=== PATIENT | male | born 1960 | race African-American/Black ===

== ENCOUNTER 2016-08-13 15:18 | Inpatient (IN) | payer OTHER ==
[2016-08-13 17:32] VITALS: BMI 22.6
--- NOTE | 2016-08-13 18:18 | HP ---
CIWA Score - CIWA Score Nausea/Vomitin-Mild Nausea/No Vomiting Muscle Tremors: 4-Moderate,w/Arms Extend Anxiety: 4-Mod. Anxious/Guarded Agitation: 4-Moderately Restless Paroxysmal Sweats: 1-Minimal Palms Moist Orientation: 0-Oriented Tacttile Disturbances: 0-None Auditory Disturbances: 0-None Visual Disturbances: 0-None Admission ROS BHS - HPI Allergies/Adverse Reactions: Allergies Allergy/AdvReac Type Severity Reaction Status Date / Time No Known Allergies Allergy Verified 12/18/15 15:28 - Ebola screening Have you traveled outside of the country in the last 21 days: No Have you had contact with anyone from an Ebola affected area: No Have you been sick,other than usual withdrawal symptoms: No - Review of Systems Constitutional: Chills, Loss of Appetite, Changes in sleep, Unintentional Wgt. Loss, Unexplained wgt Loss EENT: reports: Dental Problems (UPPER AND LOWER DENTURE MISSING) Respiratory: reports: Cough, SOB with Exertion Cardiac: reports: No Symptoms Reported GI: reports: Nausea, Poor Appetite, Poor Fluid Intake, Indigestion, Abdominal cramping : reports: No Symptoms Reported Musculoskeletal: reports: Joint Pain (LEFT ANKLE) Integumentary: reports: Change in Color (LEFT ANKLE RELATED TO CAST) Neuro: reports: Tremors Endocrine: reports: No Symptoms Reported Hematology: reports: No Symptoms Reported Psychiatric: reports: Judgement Intact, Orientated x3, Depressed Other Systems: Reviewed and Negative Patient History - Patient Medical History Hx Anemia: No Hx Asthma: No Hx Chronic Obstructive Pulmonary Disease (COPD): No Hx Cancer: No Hx Cardiac Disorders: No Hx Congestive Heart Failure: No Hx Hypertension: No Hx Hypercholesterolemia: No Hx Pacemaker: No HX Cerebrovascular Accident: No Hx Seizures: No Hx Dementia: No Hx Diabetes: No Hx Gastrointestinal Disorders: Yes Hx Liver Disease: No Hx Genitourinary Disorders: No Hx Sexually Transmitted Disorders: No Hx Renal Disease (ESRD): No Hx Thyroid Disease: No Hx Human Immunodeficiency Virus (HIV): No (negative) Hx Hepatitis C: No Hx Depression: Yes Hx Suicide Attempt: No (denies) Hx Bipolar Disorder: No Hx Schizophrenia: No - Patient Surgical History Past Surgical History: No Hx Neurologic Surgery: No Hx Cataract Extraction: No Hx Cardiac Surgery: No Hx Lung Surgery: No Hx Breast Surgery: No Hx Breast Biopsy: No Hx Abdominal Surgery: No Hx Appendectomy: No Hx Cholecystectomy: No Hx Genitourinary Surgery: No Hx Orthopedic Surgery: No - PPD History Previous Implant?: Yes Documented Results: Negative w/o proof Implanted On Prior [facility] Admission?: Yes Date: 04/03/15 Results: 0.0 PPD to be Administered?: Yes - Smoking Cessation Smoking history: Current every day smoker Have you smoked in the past 12 months: Yes Aproximately how many cigarettes per day: 3 Cigars Per Day: 0 Hx Chewing Tobacco Use: No Initiated information on smoking cessation: Yes 'Breaking Loose' booklet given: 08/13/16 - Substance & Tx. History Hx Alcohol Use: Yes Hx Substance Use: Yes Substance Use Type: Alcohol, Cocaine, Marijuana Hx Substance Use Treatment: Yes - Substances Abused Alcohol Route: Oral Frequency: Daily Amount used: [id number] + 2 PINT VOLKA Age of first use: 15 Date of Last Use: 08/13/16 Family Disease History - Family Disease History Family Disease History: Other: Father (ALCOHOL,), Mother (ALCOHOL, ), Brother (ALCOHOL,) Admission Physical Exam [facility] - Vital Signs Vital Signs: Vital Signs - 24 hr 08/13/16 17:31 Temperature 97.1 F L Pulse Rate 86 Respiratory 20 Rate Blood Pressure 122/69 - Physical General Appearance: Yes: Appropriately Dressed, Mild Distress, Thin, Tremorous, Irritable, Sweating, Anxious HEENTM: Yes: Hearing grossly Normal, Normal ENT Inspection, Normocephalic, Normal Voice Respiratory: Yes: Chest Non-Tender, Lungs Clear, Normal Breath Sounds, No Respiratory Distress, No Accessory Muscle Use Neck: Yes: Supple, Trachea in good position Breast: Yes: Breasts Symetrical Cardiology: Yes: Regular Rhythm, Regular Rate, S1, S2 Abdominal: Yes: Non Tender, Soft Genitourinary: Yes: Within Normal Limits Back: Yes: Normal Inspection Musculoskeletal: Yes: Gait Steady, Joint swelling (LEFT ANKLE), Muscle Pain Extremities: Yes: Non-Tender, Tremors, Swelling (LEFT ANKLE) Neurological: Yes: Fully Oriented, Alert, Motor Strength 5/5, Normal Response, Depressed Affect Integumentary: Yes: Warm Lymphatic: Yes: Within Normal Limits - Diagnostic (1) Alcohol dependence with uncomplicated withdrawal Current Visit: Yes Status: Acute (2) Cannabis dependence, uncomplicated Current Visit: Yes Status: Chronic (3) Cocaine dependence, uncomplicated Current Visit: Yes Status: Chronic (4) Depression Current Visit: Yes Status: Suspected Qualifiers: Depression Type: dysthymia Qualified Code(s): F34.1 - Dysthymic disorder (5) GERD (gastroesophageal reflux disease) Current Visit: Yes Status: Chronic Qualifiers: Esophagitis presence: without esophagitis Qualified Code(s): K21.9 - Gastro-esophageal reflux disease without esophagitis (6) Nicotine dependence Current Visit: Yes Status: Acute Qualifiers: Nicotine product type: cigarettes Substance use status: in withdrawal Qualified Code(s): F17.213 - Nicotine dependence, cigarettes, with withdrawal (7) Stress fracture, left ankle, sequela Current Visit: Yes Status: Resolved Qualifiers: Encounter type: subsequent encounter Fracture healing: with routine healing Qualified Code(s): M84.372D - Stress fracture, left ankle, subsequent encounter for fracture with routine healing (8) Use of cane as ambulatory aid Current Visit: Yes Status: Acute (9) Weight loss Current Visit: Yes Status: Acute Cleared for Admission [facility] - Detox or Rehab [facility] Level of Care: Medically Managed Detox Regimen/Protocol: Librium [facility] Breath Alcohol Content Breath Alcohol Content: 0 Urine Drug Screen - Results Drug Screen Negative: No Urine Drug Screen Results: THC-Marijuana, HOLLAND-Cocaine
[2016-08-13] MEDS ORDERED: LOPERAMIDE HCL 2 MG CAPSULE PO PRN (18:27)
[2016-08-13] MEDS ORDERED: IBUPROFEN 400 MG TABLET (FP) PO PRN (18:27)
[2016-08-13] MEDS ORDERED: P-EPHED 60MG/TRIPROLIDI 2.5MG TABLET PO PRN (18:27)
[2016-08-13] MEDS ORDERED: chlordiazePOXIDE HCL 25 MG CAPSULE PO PRN (18:27)
[2016-08-13] MEDS ORDERED: MAGNESIUM CITRATE 300 ML BOTTLE PO PRN (18:27)
[2016-08-13] MEDS ORDERED: MAGNESIUM HYDROX 2400MG/30ML ORAL SUSPENSION 30 ML CUP PO PRN (18:27)
[2016-08-13] MEDS ORDERED: MENTHOL/PHENOL 1 EACH UD MM PRN (18:27)
[2016-08-13] MEDS ORDERED: MAG HYDROX/AL HYDROX/SIMETH 30 ML UNIT-DOSE CUP PO PRN (18:27)
[2016-08-13] MEDS ORDERED: guaiFENesin/D-METHORPHAN HB 10 ML UNIT-DOSE CUPS PO PRN (18:27)
[2016-08-13] MEDS ORDERED: ACETAMINOPHEN 325 MG TABLET (FP) PO PRN (18:27)
[2016-08-13] MEDS: chlordiazePOXIDE HCL 25 MG CAPSULE PO SCH (22:40)
[2016-08-13] MEDS: RANITIDINE HCL 150 MG TABLET (FP) PO SCH (22:40)
[2016-08-13] MEDS: THIAMINE HCL 100 MG TABLET (FP) PO SCH (22:40)
[2016-08-13] MEDS: diphenhydrAMINE HCL 50 MG CAPSULE PO PRN (22:41)
[2016-08-13 23:00] LABS: URINE APPEARANCE CLEAR; URINE BILIRUBIN NEGATIVE (NEGATIVE); URINE BLOOD NEGATIVE (NEGATIVE); URINE COLOR AMBER; URINE GLUCOSE (UA) NEGATIVE (NEGATIVE); URINE KETONE 1+ (NEGATIVE); URINE LEUK ESTERASE NEGATIVE (NEGATIVE); URINE NITRITE NEGATIVE (NEGATIVE); URINE UROBILINOGEN 2.0 E.U/dl E.U./dl (0.2-1.0)
[2016-08-13 23:04] LABS: URINE PROTEIN 1+ (NEGATIVE)
[2016-08-13 23:06] LABS: URINE MUCUS MANY; URINE RBC 2 /hpf (0-3); URINE WBC 1 /hpf (3-5)
[2016-08-14] MEDS: chlordiazePOXIDE HCL 25 MG CAPSULE PO SCH ×4 (06:20→22:29)
[2016-08-14 09:50] LABS: MCH 32.8 pg (25.7-33.7); MCHC 33.3 g/dl (32.0-35.9); MEAN CELL VOLUME 98.7 fl (80-96); MEAN PLT VOLUME 8.2 fl (7.5-11.1); PLATELET COUNT 182 K/MM3 (134-434); RDW 14.8 % (11.9-15.9); WHITE BLOOD COUNT 3.3 K/mm3 (4.0-10.0)
[2016-08-14 10:00] LABS: ALBUMIN 3.4 g/dl (3.4-5.0); ANION GAP 7 (8-16); CALCIUM 8.7 mg/dL (8.5-10.1); CO2 30 mmol/L (21-32); COCKROFT - GAULT 75.85; GLUCOSE,RANDOM 76 mg/dL (74-106); SGOT/AST 29 U/L (15-37); SGPT/ALT 22 U/L (12-78)
[2016-08-14 10:02] LABS: ALK PHOS 73 U/L (45-117); BILIRUBIN,TOTAL 0.5 mg/dL (0.2-1.0); TOT PROT 6.3 g/dl (6.4-8.2)
--- NOTE | 2016-08-14 10:37 | PN ---
[facility] CIWA - CIWA Score Nausea/Vomitin Muscle Tremors: 3 Anxiety: 3 Agitation: 2 Paroxysmal Sweats: 1-Minimal Palms Moist Orientation: 0-Oriented Tacttile Disturbances: 1-Very Mild Itch/Numbness Auditory Disturbances: 1-Very Mild Visual Disturbances: 1-Very Mild Sensitivity Headache: 2-Mild CIWA-Ar Total Score: 17 S Progress Note (SOAP) Subjective: ALERT,IRRITABLE,ANXIOUS,INTERRUPTED SLEEP,TREMOR Objective: 08/14/16 10:34 Vital Signs Temperature 97.9 F 08/14/16 10:23 Pulse Rate 68 08/14/16 10:23 Respiratory Rate 16 08/14/16 10:23 Blood Pressure 111/67 08/14/16 10:23 O2 Sat by Pulse Oximetry (%) EKG NSR,RBBB NO CHEST PAIN,NO SOB,NO DIZZINESS 08/14/16 10:36 Laboratory Last Values WBC 3.3 K/mm3 (4.0-10.0) L 08/14/16 07:00 RBC 4.50 M/mm3 (4.00-5.60) 08/14/16 07:00 Hgb 14.8 GM/dL (11.7-16.9) D 08/14/16 07:00 Hct 44.4 % (35.4-49) 08/14/16 07:00 MCV 98.7 fl (80-96) H 08/14/16 07:00 MCHC 33.3 g/dl (32.0-35.9) 08/14/16 07:00 RDW 14.8 % (11.9-15.9) 08/14/16 07:00 Plt Count 182 K/MM3 (134-434) 08/14/16 07:00 MPV 8.2 fl (7.5-11.1) 08/14/16 07:00 Sodium 144 mmol/L (136-145) 08/14/16 07:00 Potassium 3.9 mmol/L (3.5-5.1) 08/14/16 07:00 Chloride 107 mmol/L (98-107) 08/14/16 07:00 Carbon Dioxide 30 mmol/L (21-32) 08/14/16 07:00 Anion Gap 7 (8-16) L 08/14/16 07:00 BUN 20 mg/dL (7-18) H D 08/14/16 07:00 Creatinine 1.0 mg/dL (0.7-1.3) D 08/14/16 07:00 Creat Clearance w eGFR > 60 (>60) 08/14/16 07:00 Random Glucose 76 mg/dL (74-106) 08/14/16 07:00 Calcium 8.7 mg/dL (8.5-10.1) 08/14/16 07:00 Total Bilirubin 0.5 mg/dL (0.2-1.0) 08/14/16 07:00 AST 29 U/L (15-37) D 08/14/16 07:00 ALT 22 U/L (12-78) 08/14/16 07:00 Alkaline Phosphatase 73 U/L (45-117) 08/14/16 07:00 Total Protein 6.3 g/dl (6.4-8.2) L 08/14/16 07:00 Albumin 3.4 g/dl (3.4-5.0) 08/14/16 07:00 Urine Color Gricelda 08/13/16 23:00 Urine Appearance Clear 08/13/16 23:00 Urine pH 5.0 (5.0-8.0) 08/13/16 23:00 Urine Protein 1+ (NEGATIVE) H 08/13/16 23:00 Urine Glucose (UA) Negative (NEGATIVE) 08/13/16 23:00 Urine Ketones 1+ (NEGATIVE) H 08/13/16 23:00 Urine Blood Negative (NEGATIVE) 08/13/16 23:00 Urine Nitrite Negative (NEGATIVE) 08/13/16 23:00 Urine Bilirubin Negative (NEGATIVE) 08/13/16 23:00 Urine Urobilinogen 2.0 e.u/dl E.U./dl (0.2-1.0) 08/13/16 23:00 Ur Leukocyte Esterase Negative (NEGATIVE) 08/13/16 23:00 Urine RBC 2 /hpf (0-3) 08/13/16 23:00 Urine WBC 1 /hpf (3-5) 08/13/16 23:00 Urine Mucus Many 08/13/16 23:00 Assessment: 08/14/16 10:36 WITHDRAWAL SYMPTOM Plan: CONTINUE DETOX,CANE FOR AMBULATORY AID
[2016-08-14] MEDS: RANITIDINE HCL 150 MG TABLET (FP) PO SCH ×2 (11:09→22:29)
[2016-08-14] MEDS: PRENATAL VITAMINS W/ FOLIC ACID TABLET (FP) PO SCH (11:09)
[2016-08-14 11:54] LABS: HIV 1 & 2 AB NEGATIVE; HIV 1 AGp24 NEGATIVE
--- NOTE | 2016-08-14 12:50 | EKG ---
Test Reason : Blood Pressure : / mmHG Vent. Rate : 075 BPM Atrial Rate : 075 BPM P-R Int : 142 ms QRS Dur : 132 ms QT Int : 398 ms P-R-T Axes : 078 079 061 degrees QTc Int : 444 ms NORMAL SINUS RHYTHM POSSIBLE LEFT ATRIAL ENLARGEMENT RIGHT BUNDLE BRANCH BLOCK ABNORMAL ECG NO PREVIOUS ECGS AVAILABLE Confirmed by BELINDA GHOSH MD ([id number]) on 08/14/2016 12:49:29 PM Referred By: Confirmed By:BELINDA GHOSH MD
--- NOTE | 2016-08-14 13:15 | CONSULT ---
[facility] Psychiatric Consult - Data Date of interview: 08/14/16 Admission source: [facility] Identifying data: This is 56 years old male with no psychiatric hospitalization history [id number] with: Alcohol, Nicotine, history of Cocaine andCannabis abuse Substance Abuse History: Smoking Cessation. Smoking history: Current every day smoker. Have you smoked in the past 12 months: Yes. Aproximately how many cigarettes per day: 3. Cigars Per Day: 0. Hx Chewing Tobacco Use: No. Initiated information on smoking cessation: Yes. 'Breaking Loose' booklet given : 08/13/16. - Substance & Tx. History. Hx Alcohol Use: Yes. Hx Substance Use : Yes. Substance Use Type: Alcohol, Cocaine, Marijuana. Hx Substance Use Treatment: Yes. - Substances Abused. Alcohol. Route: Oral. Frequency: Daily. Amount used: [id number] + 2 PINT VOLKA. Age of first use: 15. Date of Last Use: 08/13/16 Medical History: Weight loss, GERD, Umbulating with cane Psychiatric History: Patient reports history of depression, reports no0 medicationsn taking prior to admission Physical/Sexual Abuse/Trauma History: Denies Additional Comment: Observation. Detox Unit Care Protocol Mental Status Exam - Mental Status Exam Alert and Oriented to: Person Cognitive Function: Fair Patient Appearance: Unkempt Mood: Sad Affect: Flat Patient Behavior: Sedated Speech Pattern: Delayed Voice Loudness: Mildly Soft/Quiet Thought Process: Circumstantial Thought Disorder: Being Controlled Hallucinations: Denies Suicidal Ideation: Denies Homicidal Ideation: Denies Insight/Judgement: Fair Sleep: Difficulty falling asleep Appetite: Weight loss Muscle strength/Tone: Mild Hypotonicity Gait/Station: Shuffling Additional Comments: Observation. Detox Unit Care Protocol Psychiatric Findings - Problem List ([place] 1, 2,3) (1) Alcohol dependence with uncomplicated withdrawal Current Visit: Yes Status: Acute (2) Nicotine dependence Current Visit: Yes Status: Acute Qualifiers: Nicotine product type: cigarettes Substance use status: in withdrawal Qualified Code(s): F17.213 - Nicotine dependence, cigarettes, with withdrawal (3) Use of cane as ambulatory aid Current Visit: Yes Status: Acute (4) Cannabis dependence, uncomplicated Current Visit: Yes Status: Chronic (5) Cocaine dependence, uncomplicated Current Visit: Yes Status: Chronic (6) Drug-induced mood disorder Current Visit: Yes Status: Acute - Initial Treatment Plan Initial Treatment Plan: Observation. Detox Unit Care Protocol
[2016-08-14] MEDS: THIAMINE HCL 100 MG TABLET (FP) PO SCH (22:29)
[2016-08-14] MEDS: diphenhydrAMINE HCL 50 MG CAPSULE PO PRN (22:29)
[2016-08-15] MEDS: chlordiazePOXIDE HCL 25 MG CAPSULE PO SCH ×3 (05:59→17:42)
--- NOTE | 2016-08-15 10:36 | PN ---
[facility] CIWA - CIWA Score Nausea/Vomitin Muscle Tremors: 3 Anxiety: 2 Agitation: 2 Paroxysmal Sweats: 1-Minimal Palms Moist Orientation: 0-Oriented Tacttile Disturbances: 1-Very Mild Itch/Numbness Auditory Disturbances: 1-Very Mild Visual Disturbances: 1-Very Mild Sensitivity Headache: 2-Mild CIWA-Ar Total Score: 16 S Progress Note (SOAP) Subjective: ALERT,IRRITABLE,ANXIOUS,INTERRUPTED SLEEP Objective: 08/15/16 10:34 Vital Signs Temperature 97.7 F 08/15/16 06:00 Pulse Rate 61 08/15/16 06:00 Respiratory Rate 18 08/15/16 06:00 Blood Pressure 105/67 08/15/16 06:00 O2 Sat by Pulse Oximetry (%) 08/15/16 10:35 Laboratory Last Values WBC 3.3 K/mm3 (4.0-10.0) L 08/14/16 07:00 RBC 4.50 M/mm3 (4.00-5.60) 08/14/16 07:00 Hgb 14.8 GM/dL (11.7-16.9) D 08/14/16 07:00 Hct 44.4 % (35.4-49) 08/14/16 07:00 MCV 98.7 fl (80-96) H 08/14/16 07:00 MCHC 33.3 g/dl (32.0-35.9) 08/14/16 07:00 RDW 14.8 % (11.9-15.9) 08/14/16 07:00 Plt Count 182 K/MM3 (134-434) 08/14/16 07:00 MPV 8.2 fl (7.5-11.1) 08/14/16 07:00 Sodium 144 mmol/L (136-145) 08/14/16 07:00 Potassium 3.9 mmol/L (3.5-5.1) 08/14/16 07:00 Chloride 107 mmol/L (98-107) 08/14/16 07:00 Carbon Dioxide 30 mmol/L (21-32) 08/14/16 07:00 Anion Gap 7 (8-16) L 08/14/16 07:00 BUN 20 mg/dL (7-18) H D 08/14/16 07:00 Creatinine 1.0 mg/dL (0.7-1.3) D 08/14/16 07:00 Creat Clearance w eGFR > 60 (>60) 08/14/16 07:00 Random Glucose 76 mg/dL (74-106) 08/14/16 07:00 Calcium 8.7 mg/dL (8.5-10.1) 08/14/16 07:00 Total Bilirubin 0.5 mg/dL (0.2-1.0) 08/14/16 07:00 AST 29 U/L (15-37) D 08/14/16 07:00 ALT 22 U/L (12-78) 08/14/16 07:00 Alkaline Phosphatase 73 U/L (45-117) 08/14/16 07:00 Total Protein 6.3 g/dl (6.4-8.2) L 08/14/16 07:00 Albumin 3.4 g/dl (3.4-5.0) 08/14/16 07:00 Urine Color Gricelda 08/13/16 23:00 Urine Appearance Clear 08/13/16 23:00 Urine pH 5.0 (5.0-8.0) 08/13/16 23:00 Ur Specific [place] >= 1.030 (1.005-1.025) H 08/13/16 23:00 Urine Protein 1+ (NEGATIVE) H 08/13/16 23:00 Urine Glucose (UA) Negative (NEGATIVE) 08/13/16 23:00 Urine Ketones 1+ (NEGATIVE) H 08/13/16 23:00 Urine Blood Negative (NEGATIVE) 08/13/16 23:00 Urine Nitrite Negative (NEGATIVE) 08/13/16 23:00 Urine Bilirubin Negative (NEGATIVE) 08/13/16 23:00 Urine Urobilinogen 2.0 e.u/dl E.U./dl (0.2-1.0) 08/13/16 23:00 Ur Leukocyte Esterase Negative (NEGATIVE) 08/13/16 23:00 Urine RBC 2 /hpf (0-3) 08/13/16 23:00 Urine WBC 1 /hpf (3-5) 08/13/16 23:00 Urine Mucus Many 08/13/16 23:00 RPR Titer Nonreactive (NONREACTIVE) 08/14/16 07:00 HIV 1&2 Antibody Screen Negative 08/14/16 07:00 HIV P24 Antigen Negative 08/14/16 07:00 Assessment: 08/15/16 10:35 WITHDRAWAL SYMPTOM Plan: CONTINUE DETOX,DISCHARGE IN AM
[2016-08-15] MEDS: RANITIDINE HCL 150 MG TABLET (FP) PO SCH ×2 (10:41→22:43)
[2016-08-15] MEDS: PRENATAL VITAMINS W/ FOLIC ACID TABLET (FP) PO SCH (10:41)
[2016-08-15] MEDS: diphenhydrAMINE HCL 50 MG CAPSULE PO PRN (22:43)
[2016-08-15] MEDS: THIAMINE HCL 100 MG TABLET (FP) PO SCH (22:43)
[2016-08-15] MEDS: chlordiazePOXIDE 5 MG CAPSULE PO SCH (22:43)
[2016-08-16] MEDS: chlordiazePOXIDE 5 MG CAPSULE PO SCH ×3 (05:57→17:55)
[2016-08-16] MEDS: PRENATAL VITAMINS W/ FOLIC ACID TABLET (FP) PO SCH (10:48)
[2016-08-16] MEDS: RANITIDINE HCL 150 MG TABLET (FP) PO SCH ×2 (10:48→22:12)
--- NOTE | 2016-08-16 12:08 | PN ---
S Progress Note (SOAP) Subjective: ALERT,INTERRUPTED SLEEP Objective: 08/16/16 12:06 WITHDRAWAL SYMPTOM 08/16/16 12:06 Vital Signs Temperature 98.2 F 08/16/16 10:28 Pulse Rate 89 08/16/16 10:28 Respiratory Rate 18 08/16/16 10:28 Blood Pressure 117/69 08/16/16 10:28 O2 Sat by Pulse Oximetry (%) Assessment: 08/16/16 12:07 WITHDRAWAL SYMPTOM Plan: CONTINUE DETOX,DISCHARGE IN AM
[2016-08-16] MEDS: diphenhydrAMINE HCL 50 MG CAPSULE PO PRN (22:12)
[2016-08-16] MEDS: THIAMINE HCL 100 MG TABLET (FP) PO SCH (22:12)
[2016-08-16] MEDS: chlordiazePOXIDE HCL 10 MG CAPSULE PO SCH (22:12)
[2016-08-17] MEDS: chlordiazePOXIDE HCL 10 MG CAPSULE PO SCH (05:22)
[2016-08-17 06:30] VITALS: TEMP 97.9
--- NOTE | 2016-08-17 07:58 | PN ---
S Progress Note (SOAP) Subjective: alert,no complaint Objective: 08/17/16 07:57 Vital Signs Temperature 97.9 F 08/17/16 06:29 Pulse Rate 71 08/17/16 06:29 Respiratory Rate 18 08/17/16 06:29 Blood Pressure 135/77 08/17/16 06:29 O2 Sat by Pulse Oximetry (%) Assessment: 08/17/16 07:57 detox completed no withdrawal symptom Plan: discharge today,follow up with after care program as arrangement
--- NOTE | 2016-08-17 08:01 | DS ---
[facility] Detox Discharge Summary Admission Date: 08/13/16 Discharge Date: 08/17/16 - History Present History: Alcohol Dependence, Cannabis Dependence, Cocaine Dependence Additional Comments: follow up with after care program as arrangement Pertinent Past History: gerd nicotine dependence weight loss old fracture left ankle cane as ambulatory aid - Physical Exam Results Vital Signs: Vital Signs Temperature 97.9 F 08/17/16 06:29 Pulse Rate 71 08/17/16 06:29 Respiratory Rate 18 08/17/16 06:29 Blood Pressure 135/77 08/17/16 06:29 O2 Sat by Pulse Oximetry (%) Pertinent Admission Physical Exam Findings: withdrawal symptom - Treatment Hospital Course: Detox Protocol Followed, Detoxed Safely, Responded well, Discharged Condition Good Patient has Accepted a Rehab Referral to: declined - Medication Discharge Medications: Ambulatory Orders NK [No Known Home Medication] 04/05/15 - AMA Did Patient Leave Against Medical Advice: No
--- NOTE | 2016-08-17 08:08 | PN ---
[facility] Progress Note Note: addendum patient did not want prescription of ranitidine,advise follow up with pmd if any problem and follow up
[2016-08-17] MEDS: RANITIDINE HCL 150 MG TABLET (FP) PO SCH (09:47)
[2016-08-17] MEDS: PRENATAL VITAMINS W/ FOLIC ACID TABLET (FP) PO SCH (09:47)
[2016-08-17 10:08] VITALS: BP 113/71; PULSE 84
== END 2016-08-17 10:12 | disposition home or self-care (01) | DRG 774 ==
LOC: YASAS 15:18 → Y6N 19:32
PROVIDERS: ADMIT Internal Medicine Addiction Medicine; ATTEND Internal Medicine Addiction Medicine
PROC: HZ2ZZZZ Detoxification Services for Substance Abuse Treatment (ICD-10-PCS; principal; 2016-08-17)
DX: F10.230 Alcohol dependence with withdrawal, uncomplicated (principal); F14.20 Cocaine dependence, uncomplicated; F12.20 Cannabis dependence, uncomplicated; F17.213 Nicotine dependence, cigarettes, with withdrawal; F19.24 Other psychoactive substance dependence with psychoactive substance-induced mood disorder; K21.9 Gastro-esophageal reflux disease without esophagitis; R63.4 Abnormal weight loss; Z68.22 Body mass index [BMI] 22.0-22.9, adult; R26.2 Difficulty in walking, not elsewhere classified; Z99.89 Dependence on other enabling machines and devices; M84.372D Stress fracture, left ankle, subsequent encounter for fracture with routine healing
CPT/HCPCS: 36415; 80053; 81003; 81015; 85027; 86593; 87389; 93005; 93010

== ENCOUNTER 2016-11-14 10:57 | Inpatient (IN) | payer OTHER ==
[2016-11-14 11:27] VITALS: BMI 23.3
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
[2016-11-14] MEDS ORDERED: chlordiazePOXIDE HCL 25 MG CAPSULE PO PRN (13:28)
[2016-11-14] MEDS ORDERED: LOPERAMIDE HCL 2 MG CAPSULE PO PRN (13:28)
[2016-11-14] MEDS ORDERED: IBUPROFEN 400 MG TABLET (FP) PO PRN (13:28)
[2016-11-14] MEDS ORDERED: guaiFENesin/D-METHORPHAN HB 10 ML UNIT-DOSE CUPS PO PRN (13:28)
[2016-11-14] MEDS ORDERED: hydrOXYzine PAMOATE 25 MG CAPSULE (FP) PO PRN (13:28)
[2016-11-14] MEDS ORDERED: MAGNESIUM HYDROX 2400MG/30ML ORAL SUSPENSION 30 ML CUP PO PRN (13:28)
[2016-11-14] MEDS ORDERED: P-EPHED 60MG/TRIPROLIDI 2.5MG TABLET PO PRN (13:28)
[2016-11-14] MEDS ORDERED: MENTHOL/PHENOL 1 EACH UD MM PRN (13:28)
[2016-11-14] MEDS ORDERED: MAGNESIUM CITRATE 300 ML BOTTLE PO PRN (13:28)
[2016-11-14] MEDS ORDERED: NICOTINE POLACRILEX 2 MG GUM BUC PRN (13:28)
[2016-11-14] MEDS ORDERED: ACETAMINOPHEN 325 MG TABLET (FP) PO PRN (13:28)
[2016-11-14] MEDS ORDERED: MAG HYDROX/AL HYDROX/SIMETH 30 ML UNIT-DOSE CUP PO PRN (13:28)
[2016-11-14] MEDS ORDERED: chlordiazePOXIDE HCL 25 MG CAPSULE PO ONE (14:12)
[2016-11-14] MEDS: NICOTINE 14 MG/24 HOURS TOPICAL PATCH TD SCH (14:49)
[2016-11-14 16:09] LABS: MCH 33.1 pg (25.7-33.7); MCHC 34.1 g/dl (32.0-35.9); MEAN CELL VOLUME 97.1 fl (80-96); MEAN PLT VOLUME 8.7 fl (7.5-11.1); PLATELET COUNT 243 K/MM3 (134-434); RDW 14.6 % (11.9-15.9); WHITE BLOOD COUNT 4.3 K/mm3 (4.0-10.0)
[2016-11-14 16:31] LABS: ALBUMIN 3.9 g/dl (3.4-5.0); ANION GAP 6 (8-16); BILIRUBIN,TOTAL 0.5 mg/dL (0.2-1.0); CALCIUM 9.3 mg/dL (8.5-10.1); CO2 32 mmol/L (21-32); GLUCOSE,RANDOM 86 mg/dL (74-106); SGOT/AST 14 U/L (15-37); SGPT/ALT 22 U/L (12-78); TOT PROT 7.5 g/dl (6.4-8.2)
[2016-11-14 16:32] LABS: ALK PHOS 85 U/L (45-117)
[2016-11-14] MEDS: chlordiazePOXIDE HCL 25 MG CAPSULE PO SCH ×2 (16:50→22:13)
[2016-11-14 19:02] LABS: URINE APPEARANCE CLEAR; URINE BILIRUBIN NEGATIVE (NEGATIVE); URINE BLOOD NEGATIVE (NEGATIVE); URINE COLOR DKYELLOW; URINE GLUCOSE (UA) NEGATIVE (NEGATIVE); URINE KETONE NEGATIVE (NEGATIVE); URINE LEUK ESTERASE NEGATIVE (NEGATIVE); URINE NITRITE NEGATIVE (NEGATIVE); URINE PROTEIN NEGATIVE (NEGATIVE); URINE UROBILINOGEN 4.0 E.U/dl mg/dL (0.2-1.0)
[2016-11-14] MEDS: THIAMINE HCL 100 MG TABLET (FP) PO SCH (22:13)
[2016-11-15] MEDS: chlordiazePOXIDE HCL 25 MG CAPSULE PO SCH ×4 (05:43→22:14)
[2016-11-15] MEDS: PRENATAL VITAMINS W/ FOLIC ACID TABLET (FP) PO SCH (10:06)
[2016-11-15] MEDS: NICOTINE 14 MG/24 HOURS TOPICAL PATCH TD SCH (10:06)
--- NOTE | 2016-11-15 14:30 | PN ---
S CIWA - CIWA Score Nausea/Vomitin-Int. Nausea w/Dry Heave Muscle Tremors: 2 Anxiety: 3 Agitation: 2 Paroxysmal Sweats: 3 Orientation: 0-Oriented Tacttile Disturbances: 0-None Auditory Disturbances: 2-Mild Harshness/Frighten Visual Disturbances: 2-Mild Sensitivity Headache: 0-None Present CIWA-Ar Total Score: 18 BHS Progress Note (SOAP) Subjective: Nausea, Interrupted sleep, Sweating, Body Aches. Objective: PT. A & O X 3. NO ACUTE DISTRESS. 11/15/16 14:31 Vital Signs Temperature 98.7 F 11/15/16 13:52 Pulse Rate 83 11/15/16 13:52 Respiratory Rate 18 11/15/16 13:52 Blood Pressure 103/70 11/15/16 13:52 O2 Sat by Pulse Oximetry (%) Laboratory Tests 11/14/16 11/14/16 11/14/16 13:00 13:00 13:00 WBC 4.3 D RBC 4.96 Hgb 16.4 D Hct 48.2 MCV 97.1 H MCH 33.1 MCHC 34.1 RDW 14.6 Plt Count 243 D MPV 8.7 Sodium 143 Potassium 4.4 Chloride 105 Carbon Dioxide 32 Anion Gap 6 L BUN 18 Creatinine 1.0 Creat Clearance w eGFR > 60 Random Glucose 86 Calcium 9.3 Total Bilirubin 0.5 AST 14 L D ALT 22 Alkaline Phosphatase 85 Total Protein 7.5 Albumin 3.9 Urine Color Urine Appearance Urine pH Ur Specific [place] Urine Protein Urine Glucose (UA) Urine Ketones Urine Blood Urine Nitrite Urine Bilirubin Urine Urobilinogen Ur Leukocyte Esterase RPR Titer Nonreactive 11/14/16 18:53 WBC RBC Hgb Hct MCV MCH MCHC RDW Plt Count MPV Sodium Potassium Chloride Carbon Dioxide Anion Gap BUN Creatinine Creat Clearance w eGFR Random Glucose Calcium Total Bilirubin AST ALT Alkaline Phosphatase Total Protein Albumin Urine Color Dkyellow Urine Appearance Clear Urine pH 6.0 Ur Specific [place] 1.020 Urine Protein Negative Urine Glucose (UA) Negative Urine Ketones Negative Urine Blood Negative Urine Nitrite Negative Urine Bilirubin Negative Urine Urobilinogen 4.0 e.u/dl Ur Leukocyte Esterase Negative RPR Titer LABS NOTED. Assessment: 11/15/16 14:31 WITHDRAWAL SYMPTOMS. Plan: CONTINUE DETOX.
[2016-11-15] MEDS: diphenhydrAMINE HCL 50 MG CAPSULE PO PRN (22:14)
[2016-11-15] MEDS: THIAMINE HCL 100 MG TABLET (FP) PO SCH (22:14)
[2016-11-16] MEDS: diphenhydrAMINE HCL 50 MG CAPSULE PO PRN ×2 (00:39→22:16)
[2016-11-16] MEDS: chlordiazePOXIDE HCL 25 MG CAPSULE PO SCH ×2 (05:48→10:17)
[2016-11-16] MEDS: PRENATAL VITAMINS W/ FOLIC ACID TABLET (FP) PO SCH (10:17)
[2016-11-16] MEDS: NICOTINE 14 MG/24 HOURS TOPICAL PATCH TD SCH (10:18)
--- NOTE | 2016-11-16 14:03 | EKG ---
Test Reason : Blood Pressure : / mmHG Vent. Rate : 070 BPM Atrial Rate : 070 BPM P-R Int : 140 ms QRS Dur : 134 ms QT Int : 406 ms P-R-T Axes : 077 077 059 degrees QTc Int : 438 ms NORMAL SINUS RHYTHM POSSIBLE LEFT ATRIAL ENLARGEMENT RIGHT BUNDLE BRANCH BLOCK ABNORMAL ECG WHEN COMPARED WITH ECG OF 13-AUG-2016 19:10, NO SIGNIFICANT CHANGE WAS FOUND Confirmed by MCKENNA CORTES, BRAN ([id number]) on 11/16/2016 2:03:32 PM Referred By: Confirmed By:BRAN ANDRES MD
--- NOTE | 2016-11-16 15:46 | PN ---
S CIWA - CIWA Score Nausea/Vomitin Muscle Tremors: 4-Moderate,w/Arms Extend Anxiety: 4-Mod. Anxious/Guarded Agitation: 4-Moderately Restless Paroxysmal Sweats: 3 Orientation: 0-Oriented Tacttile Disturbances: 1-Very Mild Itch/Numbness Auditory Disturbances: 0-None Visual Disturbances: 0-None Headache: 2-Mild CIWA-Ar Total Score: 21 BHS Progress Note (SOAP) Subjective: Tremor, chills, sweating, diarrhea, anxious Objective: 11/16/16 15:43 Last Vital Signs Temp Pulse Resp BP Pulse Ox 97.8 F 76 18 98/68 11/16/16 14:18 11/16/16 14:18 11/16/16 14:18 11/16/16 14:18 b/p 98/68 (noted) Laboratory Tests 11/14/16 11/14/16 11/14/16 13:00 13:00 13:00 WBC 4.3 D RBC 4.96 Hgb 16.4 D Hct 48.2 MCV 97.1 H MCH 33.1 MCHC 34.1 RDW 14.6 Plt Count 243 D MPV 8.7 Sodium 143 Potassium 4.4 Chloride 105 Carbon Dioxide 32 Anion Gap 6 L BUN 18 Creatinine 1.0 Creat Clearance w eGFR > 60 Random Glucose 86 Calcium 9.3 Total Bilirubin 0.5 AST 14 L D ALT 22 Alkaline Phosphatase 85 Total Protein 7.5 Albumin 3.9 Urine Color Urine Appearance Urine pH Ur Specific [place] Urine Protein Urine Glucose (UA) Urine Ketones Urine Blood Urine Nitrite Urine Bilirubin Urine Urobilinogen Ur Leukocyte Esterase RPR Titer Nonreactive 11/14/16 18:53 WBC RBC Hgb Hct MCV MCH MCHC RDW Plt Count MPV Sodium Potassium Chloride Carbon Dioxide Anion Gap BUN Creatinine Creat Clearance w eGFR Random Glucose Calcium Total Bilirubin AST ALT Alkaline Phosphatase Total Protein Albumin Urine Color Dkyellow Urine Appearance Clear Urine pH 6.0 Ur Specific [place] 1.020 Urine Protein Negative Urine Glucose (UA) Negative Urine Ketones Negative Urine Blood Negative Urine Nitrite Negative Urine Bilirubin Negative Urine Urobilinogen 4.0 e.u/dl Ur Leukocyte Esterase Negative RPR Titer Labs noted Assessment: 11/16/16 15:44 Withdrawal symptoms Hypotension noted Plan: Continue detox Hypotension: asymptomatic, encouraged to drink lots of water (water pitcher ordered)
[2016-11-16] MEDS: chlordiazePOXIDE 5 MG CAPSULE PO SCH ×2 (17:58→22:16)
[2016-11-16] MEDS: THIAMINE HCL 100 MG TABLET (FP) PO SCH (22:16)
[2016-11-17] MEDS: chlordiazePOXIDE 5 MG CAPSULE PO SCH ×2 (05:48→10:08)
[2016-11-17] MEDS: PRENATAL VITAMINS W/ FOLIC ACID TABLET (FP) PO SCH (10:09)
[2016-11-17] MEDS: NICOTINE 14 MG/24 HOURS TOPICAL PATCH TD SCH (10:09)
--- NOTE | 2016-11-17 11:10 | PN ---
BHS Progress Note (SOAP) Subjective: Sweating,interrupted sleep,restless Objective: 11/17/16 11:09 Vital Signs - 8 hr 11/17/16 11/17/16 11/17/16 03:29 06:30 09:36 Temperature 97.5 F L 96.2 F L Pulse Rate 69 90 Respiratory 18 18 18 Rate Blood Pressure 107/69 111/77 Laboratory Last Values WBC 4.3 K/mm3 (4.0-10.0) D 11/14/16 13:00 RBC 4.96 M/mm3 (4.00-5.60) 11/14/16 13:00 Hgb 16.4 GM/dL (11.7-16.9) D 11/14/16 13:00 Hct 48.2 % (35.4-49) 11/14/16 13:00 MCV 97.1 fl (80-96) H 11/14/16 13:00 MCH 33.1 pg (25.7-33.7) 11/14/16 13:00 MCHC 34.1 g/dl (32.0-35.9) 11/14/16 13:00 RDW 14.6 % (11.9-15.9) 11/14/16 13:00 Plt Count 243 K/MM3 (134-434) D 11/14/16 13:00 MPV 8.7 fl (7.5-11.1) 11/14/16 13:00 Sodium 143 mmol/L (136-145) 11/14/16 13:00 Potassium 4.4 mmol/L (3.5-5.1) 11/14/16 13:00 Chloride 105 mmol/L (98-107) 11/14/16 13:00 Carbon Dioxide 32 mmol/L (21-32) 11/14/16 13:00 Anion Gap 6 (8-16) L 11/14/16 13:00 BUN 18 mg/dL (7-18) 11/14/16 13:00 Creatinine 1.0 mg/dL (0.7-1.3) 11/14/16 13:00 Creat Clearance w eGFR > 60 (>60) 11/14/16 13:00 Random Glucose 86 mg/dL (74-106) 11/14/16 13:00 Calcium 9.3 mg/dL (8.5-10.1) 11/14/16 13:00 Total Bilirubin 0.5 mg/dL (0.2-1.0) 11/14/16 13:00 AST 14 U/L (15-37) L D 11/14/16 13:00 ALT 22 U/L (12-78) 11/14/16 13:00 Alkaline Phosphatase 85 U/L (45-117) 11/14/16 13:00 Total Protein 7.5 g/dl (6.4-8.2) 11/14/16 13:00 Albumin 3.9 g/dl (3.4-5.0) 11/14/16 13:00 Urine Color Dkyellow 11/14/16 18:53 Urine Appearance Clear 11/14/16 18:53 Urine pH 6.0 (5.0-8.0) 11/14/16 18:53 Ur Specific [place] 1.020 (1.005-1.025) 11/14/16 18:53 Urine Protein Negative (NEGATIVE) 11/14/16 18:53 Urine Glucose (UA) Negative (NEGATIVE) 11/14/16 18:53 Urine Ketones Negative (NEGATIVE) 11/14/16 18:53 Urine Blood Negative (NEGATIVE) 11/14/16 18:53 Urine Nitrite Negative (NEGATIVE) 11/14/16 18:53 Urine Bilirubin Negative (NEGATIVE) 11/14/16 18:53 Urine Urobilinogen 4.0 e.u/dl mg/dL (0.2-1.0) 11/14/16 18:53 Ur Leukocyte Esterase Negative (NEGATIVE) 11/14/16 18:53 RPR Titer Nonreactive (NONREACTIVE) 11/14/16 13:00 labs noted Assessment: 11/17/16 11:10 Withdrawal sx. Plan: Continue detox
[2016-11-17] MEDS: chlordiazePOXIDE HCL 10 MG CAPSULE PO SCH ×2 (17:40→22:01)
[2016-11-17] MEDS: THIAMINE HCL 100 MG TABLET (FP) PO SCH (22:01)
[2016-11-17] MEDS: diphenhydrAMINE HCL 50 MG CAPSULE PO PRN (22:01)
[2016-11-18] MEDS: chlordiazePOXIDE HCL 10 MG CAPSULE PO SCH ×2 (05:48→10:17)
[2016-11-18 09:57] VITALS: BP 107/71; PULSE 95; TEMP 98.9
[2016-11-18] MEDS: NICOTINE 14 MG/24 HOURS TOPICAL PATCH TD SCH (10:15)
[2016-11-18] MEDS: PRENATAL VITAMINS W/ FOLIC ACID TABLET (FP) PO SCH (10:15)
--- NOTE | 2016-11-18 13:39 | DS ---
[facility] Detox Discharge Summary Admission Date: 11/14/16 Discharge Date: 11/18/16 - History Present History: Alcohol Dependence, Cannabis Dependence, Cocaine Dependence Pertinent Past History: GERD - Physical Exam Results Vital Signs: Vital Signs Temperature 98.9 F 11/18/16 09:56 Pulse Rate 95 H 11/18/16 09:56 Respiratory Rate 20 11/18/16 09:56 Blood Pressure 107/71 11/18/16 09:56 O2 Sat by Pulse Oximetry (%) Pertinent Admission Physical Exam Findings: Withdrawal sx. Laboratory Last Values WBC 4.3 K/mm3 (4.0-10.0) D 11/14/16 13:00 RBC 4.96 M/mm3 (4.00-5.60) 11/14/16 13:00 Hgb 16.4 GM/dL (11.7-16.9) D 11/14/16 13:00 Hct 48.2 % (35.4-49) 11/14/16 13:00 MCV 97.1 fl (80-96) H 11/14/16 13:00 MCH 33.1 pg (25.7-33.7) 11/14/16 13:00 MCHC 34.1 g/dl (32.0-35.9) 11/14/16 13:00 RDW 14.6 % (11.9-15.9) 11/14/16 13:00 Plt Count 243 K/MM3 (134-434) D 11/14/16 13:00 MPV 8.7 fl (7.5-11.1) 11/14/16 13:00 Sodium 143 mmol/L (136-145) 11/14/16 13:00 Potassium 4.4 mmol/L (3.5-5.1) 11/14/16 13:00 Chloride 105 mmol/L (98-107) 11/14/16 13:00 Carbon Dioxide 32 mmol/L (21-32) 11/14/16 13:00 Anion Gap 6 (8-16) L 11/14/16 13:00 BUN 18 mg/dL (7-18) 11/14/16 13:00 Creatinine 1.0 mg/dL (0.7-1.3) 11/14/16 13:00 Creat Clearance w eGFR > 60 (>60) 11/14/16 13:00 Random Glucose 86 mg/dL (74-106) 11/14/16 13:00 Calcium 9.3 mg/dL (8.5-10.1) 11/14/16 13:00 Total Bilirubin 0.5 mg/dL (0.2-1.0) 11/14/16 13:00 AST 14 U/L (15-37) L D 11/14/16 13:00 ALT 22 U/L (12-78) 11/14/16 13:00 Alkaline Phosphatase 85 U/L (45-117) 11/14/16 13:00 Total Protein 7.5 g/dl (6.4-8.2) 11/14/16 13:00 Albumin 3.9 g/dl (3.4-5.0) 11/14/16 13:00 Urine Color Dkyellow 11/14/16 18:53 Urine Appearance Clear 11/14/16 18:53 Urine pH 6.0 (5.0-8.0) 11/14/16 18:53 Ur Specific [place] 1.020 (1.005-1.025) 11/14/16 18:53 Urine Protein Negative (NEGATIVE) 11/14/16 18:53 Urine Glucose (UA) Negative (NEGATIVE) 11/14/16 18:53 Urine Ketones Negative (NEGATIVE) 11/14/16 18:53 Urine Blood Negative (NEGATIVE) 11/14/16 18:53 Urine Nitrite Negative (NEGATIVE) 11/14/16 18:53 Urine Bilirubin Negative (NEGATIVE) 11/14/16 18:53 Urine Urobilinogen 4.0 e.u/dl mg/dL (0.2-1.0) 11/14/16 18:53 Ur Leukocyte Esterase Negative (NEGATIVE) 11/14/16 18:53 RPR Titer Nonreactive (NONREACTIVE) 11/14/16 13:00 labs noted - Treatment Hospital Course: Detox Protocol Followed, Detoxed Safely, Responded well, Discharged Condition Good, Rehab Referral Accepted Patient has Accepted a Rehab Referral to: [facility] - Medication Discharge Medications: Ambulatory Orders NK [No Known Home Medication] 11/14/16 - Diagnosis (1) Alcohol dependence with uncomplicated withdrawal Status: Acute (2) Cocaine dependence, uncomplicated Status: Acute (3) Drug-induced mood disorder Status: Acute (4) Nicotine dependence Status: Acute Qualifiers: Nicotine product type: cigarettes Substance use status: in withdrawal Qualified Code(s): F17.213 - Nicotine dependence, cigarettes, with withdrawal (5) Cannabis dependence, uncomplicated Status: Chronic (6) GERD (gastroesophageal reflux disease) Status: Chronic Qualifiers: Esophagitis presence: without esophagitis Qualified Code(s): K21.9 - Gastro-esophageal reflux disease without esophagitis - AMA Did Patient Leave Against Medical Advice: No
== END 2016-11-18 11:00 | disposition home or self-care (01) | DRG 774 ==
LOC: YASAS 10:57 → Y3N 13:58
PROVIDERS: ADMIT Internal Medicine; ATTEND Internal Medicine
PROC: HZ2ZZZZ Detoxification Services for Substance Abuse Treatment (ICD-10-PCS; principal; 2016-11-14)
DX: F10.230 Alcohol dependence with withdrawal, uncomplicated (principal); F14.20 Cocaine dependence, uncomplicated; F12.20 Cannabis dependence, uncomplicated; F17.213 Nicotine dependence, cigarettes, with withdrawal; F19.24 Other psychoactive substance dependence with psychoactive substance-induced mood disorder; K21.9 Gastro-esophageal reflux disease without esophagitis; Z87.898 Personal history of other specified conditions
CPT/HCPCS: 36415; 80053; 81003; 85027; 86593; 93005; 93010

== ENCOUNTER 2018-05-12 15:14 | Inpatient (IN) | payer OTHER ==
[2018-05-12 19:10] VITALS: BMI 22.6
--- NOTE | 2018-05-12 22:22 | HP ---
CIWA Score Nausea/Vomitin-Mild Nausea/No Vomiting Muscle Tremors: 4-Moderate,w/Arms Extend Anxiety: 4-Mod. Anxious/Guarded Agitation: 3 Paroxysmal Sweats: 1-Minimal Palms Moist Orientation: 1-Uncertain about Date Tacttile Disturbances: 0-None Auditory Disturbances: 0-None Visual Disturbances: 0-None Headache: 0-None Present CIWA-Ar Total Score: 14 - Admission Criteria OASAS Guidelines: Admission for Medically Managed Detox: Requires at least one of the followin. CIWA greater than 12 2. Seizures within the past 24 hours 3. Delirium tremens within the past 24 hours 4. Hallucinations within the past 24 hours 5. Acute intervention needed for co occurring medical disorder 6. Acute intervention needed for co occurring psychiatric disorder 7. Severe withdrawal that cannot be handled at a lower level of care (continued vomiting, continued diarrhea, abnormal vital signs) requiring intravenous medication and/or fluids 8. Admission ROS S - HPI Chief Complaint: Alcohol withdrawal symptoms Allergies/Adverse Reactions: Allergies Allergy/AdvReac Type Severity Reaction Status Date / Time No Known Allergies Allergy Verified 05/12/18 23:20 History of Present Illness: 57 years old male with a long history of alcohol dependence is seeking admission to detox. Patient's last detox was in November 2016 and he reports about 3 months of sobriety. He has medical history of depression, anxiety, anemia and GERD. He denies suicide attempt/ suicidal ideation at this time Exam Limitations: No Limitations - Ebola screening Have you traveled outside of the country in the last 21 days: No Have you had contact with anyone from an Ebola affected area: No Have you been sick,other than usual withdrawal symptoms: No Do you have a fever: No - Review of Systems Constitutional: Chills, Malaise, Night Sweats, Changes in sleep EENT: reports: Sinus Pressure Respiratory: reports: No Symptoms reported Cardiac: reports: No Symptoms Reported GI: reports: Nausea, Poor Appetite, Poor Fluid Intake, Abdominal cramping : reports: No Symptoms Reported Musculoskeletal: reports: Back Pain, Joint Pain Integumentary: reports: Dryness, Flushing Neuro: reports: Tremors Endocrine: reports: No Symptoms Reported Hematology: reports: No Symptoms Reported Psychiatric: reports: Anxious, Depressed Other Systems: Reviewed and Negative Patient History - Patient Medical History Hx Anemia: Yes (NO MEDS) Hx Asthma: No Hx Chronic Obstructive Pulmonary Disease (COPD): No Hx Cancer: No Hx Cardiac Disorders: No Hx Congestive Heart Failure: No Hx Hypertension: No Hx Hypercholesterolemia: No Hx Pacemaker: No HX Cerebrovascular Accident: No Hx Seizures: No Hx Dementia: No Hx Diabetes: No Hx Gastrointestinal Disorders: Yes (GERD-NO CURRENT MED) Hx Liver Disease: No Hx Genitourinary Disorders: No Hx Sexually Transmitted Disorders: No Hx Renal Disease (ESRD): No Hx Thyroid Disease: No Hx Human Immunodeficiency Virus (HIV): No (NEGATIVE HX) Hx Hepatitis C: No Hx Depression: Yes Hx Suicide Attempt: No (Denies suicide attempt / suicidal ideation at this time. ) Hx Bipolar Disorder: No Hx Schizophrenia: No Other Medical History: Anxiety- Not on medication - Patient Surgical History Past Surgical History: No Hx Neurologic Surgery: No Hx Cataract Extraction: No Hx Cardiac Surgery: No Hx Lung Surgery: No Hx Abdominal Surgery: No Hx Appendectomy: No Hx Cholecystectomy: No Hx Genitourinary Surgery: No Hx Orthopedic Surgery: No Anesthesia Reaction: No - PPD History Documented Results: Negative w/proof Date: 08/15/16 Results: 0.00 PPD to be Administered?: Yes - Reproductive History Patient is a Female of Child Bearing Age (11 -55 yrs old): No (Male) - Smoking Cessation Smoking history: Current every day smoker Have you smoked in the past 12 months: Yes Aproximately how many cigarettes per day: 6 Cigars Per Day: 0 Hx Chewing Tobacco Use: No Initiated information on smoking cessation: Yes 'Breaking Loose' booklet given: 05/12/18 - Substance & Tx. History Hx Alcohol Use: Yes Hx Substance Use: Yes Substance Use Type: Alcohol, Cocaine, Marijuana Hx Substance Use Treatment: Yes - Substances Abused Alcohol Route: Oral Frequency: Daily Amount used: RUM - 1 Liter Age of first use: 15 Date of Last Use: 05/11/18 Cocaine Route: Smoking Frequency: Daily Amount used: $100 Age of first use: 21 Date of Last Use: 05/11/18 Marijuana/Hashish Route: Smoking Frequency: Daily Amount used: $10 Age of first use: 15 Date of Last Use: 05/12/18 Family Disease History - Family Disease History Family Disease History: Other: Father (ALCOHOL,), Mother (ALCOHOL, ), Brother (ALCOHOL,) Admission Physical Exam BHS - Vital Signs Vital Signs: Vital Signs - 24 hr 05/12/18 19:08 Temperature 97.8 F Pulse Rate 90 Respiratory 18 Rate Blood Pressure 116/74 - Physical General Appearance: Yes: Moderate Distress, Tremorous, Sweating, Anxious HEENTM: Yes: EOMI, Normal ENT Inspection, Normal Voice, SHEREEN Respiratory: Yes: Lungs Clear, Normal Breath Sounds, No Respiratory Distress Neck: Yes: Supple Breast: Yes: Breast Exam Deferred Cardiology: Yes: Tachycardia Abdominal: Yes: Normal Bowel Sounds, Soft Genitourinary: Yes: Within Normal Limits Back: Yes: Normal Inspection Musculoskeletal: Yes: Back pain, Muscle Pain Extremities: Yes: Tremors 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, Alert, Normal Mood/Affect Integumentary: Yes: Warm Lymphatic: Yes: Within Normal Limits - Diagnostic (1) Alcohol dependence with uncomplicated withdrawal Current Visit: Yes Status: Chronic (2) Cocaine dependence, uncomplicated Current Visit: Yes Status: Chronic (3) Nicotine dependence Current Visit: Yes Status: Chronic Qualifiers: Nicotine product type: cigarettes Substance use status: uncomplicated Qualified Code(s): F17.210 - Nicotine dependence, cigarettes, uncomplicated (4) Cannabis dependence, uncomplicated Current Visit: Yes Status: Chronic (5) GERD (gastroesophageal reflux disease) Current Visit: Yes Status: Chronic Qualifiers: Esophagitis presence: without esophagitis Qualified Code(s): K21.9 - Gastro -esophageal reflux disease without esophagitis (6) Depression Current Visit: Yes Status: Chronic Qualifiers: Depression Type: dysthymia Qualified Code(s): F34.1 - Dysthymic disorder (7) Anxiety Current Visit: Yes Status: Chronic Cleared for Admission [facility] - Detox or Rehab [facility] Level of Care: Medically Managed Detox Regimen/Protocol: Librium [facility] Breath Alcohol Content Breath Alcohol Content: 0 Urine Drug Screen - Results Drug Screen Negative: No Urine Drug Screen Results: THC-Marijuana, [place]-Cocaine Inpatient Rehab Admission - Rehab Decision to Admit Inpatient rehab admission?: No - Initial Determination Are CD services needed?: No Free of communicable disease: Yes Not in need of hospitalization: Yes
[2018-05-12] MEDS ORDERED: MAG HYDROX/AL HYDROX/SIMETH 30 ML UNIT-DOSE CUP PO PRN (22:41)
[2018-05-12] MEDS ORDERED: P-EPHED 60MG/TRIPROLIDI 2.5MG TABLET PO PRN (22:41)
[2018-05-12] MEDS ORDERED: chlordiazePOXIDE HCL 25 MG CAPSULE PO PRN (22:41)
[2018-05-12] MEDS ORDERED: IBUPROFEN 400 MG TABLET (FP) PO PRN (22:41)
[2018-05-12] MEDS ORDERED: MAGNESIUM CITRATE 300 ML BOTTLE PO PRN (22:41)
[2018-05-12] MEDS ORDERED: guaiFENesin/D-METHORPHAN HB 10 ML UNIT-DOSE CUPS PO PRN (22:41)
[2018-05-12] MEDS ORDERED: MENTHOL/PHENOL 1 EACH UD MM PRN (22:41)
[2018-05-12] MEDS ORDERED: MAGNESIUM HYDROX 2400MG/30ML ORAL SUSPENSION 30 ML CUP PO PRN (22:41)
[2018-05-12] MEDS ORDERED: NICOTINE POLACRILEX 2 MG GUM BC PRN (22:41)
[2018-05-12] MEDS ORDERED: LOPERAMIDE HCL 2 MG CAPSULE PO PRN (22:41)
[2018-05-12] MEDS ORDERED: ACETAMINOPHEN 325 MG TABLET (FP) PO PRN (22:41)
[2018-05-13] MEDS: chlordiazePOXIDE HCL 25 MG CAPSULE PO SCH ×5 (00:15→22:14)
[2018-05-13] MEDS: MELATONIN 5 MG TABLETS PO PRN ×2 (00:16→22:14)
--- NOTE | 2018-05-13 09:45 | PN ---
BHS CIWA - CIWA Score Nausea/Vomitin-No Nausea/No Vomiting Muscle Tremors: 3 Anxiety: 2 Agitation: 2 Paroxysmal Sweats: 1-Minimal Palms Moist Orientation: 1-Uncertain about Date Tacttile Disturbances: 1-Very Mild Itch/Numbness Auditory Disturbances: 0-None Visual Disturbances: 0-None Headache: 2-Mild CIWA-Ar Total Score: 12 BHS Progress Note (SOAP) Subjective: tremor sweating restlessness trouble concentrating Objective: 05/13/18 09:46 Vital Signs Temperature 97.2 F L 05/13/18 09:21 Pulse Rate 77 05/13/18 09:21 Respiratory Rate 18 05/13/18 09:21 Blood Pressure 106/65 05/13/18 09:21 O2 Sat by Pulse Oximetry (%) 05/13/18 09:47 lab pending Assessment: 05/13/18 09:47 withdrawal sx Plan: continue detox
--- NOTE | 2018-05-13 10:16 | CONSULT ---
[facility] Psychiatric Consult - Data Date of interview: 05/13/18 Admission source: [facility] Identifying data: Patient is a 57 year old single male, without children, unemployed, homeless, and is not receiving financial assistance. This is one of multiple admissions for patient. Patient admitted to for alcohol and cocaine dependence. Substance Abuse History: Smoking Cessation. Smoking history: Current every day smoker. Have you smoked in the past 12 months: Yes. Aproximately how many cigarettes per day: 6. Cigars Per Day: 0. Hx Chewing Tobacco Use: No. Initiated information on smoking cessation: Yes. 'Breaking Loose' booklet given : 05/12/18. - Substance & Tx. History. Hx Alcohol Use: Yes. Hx Substance Use : Yes. Substance Use Type: Alcohol, Cocaine, Marijuana. Hx Substance Use Treatment: Yes. - Substances Abused. Alcohol. Route: Oral. Frequency: Daily. Amount used: RUM - 1 Liter. Age of first use: 15. Date of Last Use: . Cocaine. Route: Smoking. Frequency: Daily. Amount used: $100. Age of first use: 21. Date of Last Use: 05/11/18. Marijuana/Hashish. Route : Smoking. Frequency: Daily. Amount used: $10. Age of first use: 15. Date of Last Use: 05/12/18 Medical History: Anemia, GERD Psychiatric History: Patient denies h/o psychiatric hospitalizations and suicide attempt. States he receives outpatient psychiatric care at "[facility]" and is prescribed a medication for anxiety. Patient unable to recall the medication. States he has not accepted psychotropic medications in several months. Physical/Sexual Abuse/Trauma History: denies. Mental Status Exam - Mental Status Exam Alert and Oriented to: Time, Place, Person Cognitive Function: Good Patient Appearance: Well Groomed Mood: Anxious, Euthymic Affect: Mood Congruent Patient Behavior: Appropriate, Cooperative Speech Pattern: Clear, Appropriate Voice Loudness: Normal Thought Process: Intact, Goal Oriented Thought Disorder: Not Present Hallucinations: Denies Suicidal Ideation: Denies Homicidal Ideation: Denies Insight/Judgement: Poor Sleep: Fair Appetite: Fair Muscle strength/Tone: Normal Gait/Station: Normal Psychiatric Findings - Problem List ([place] 1, 2,3) (1) Alcohol dependence with uncomplicated withdrawal Current Visit: Yes Status: Acute (2) Cannabis dependence, uncomplicated Current Visit: Yes Status: Chronic (3) Cocaine dependence, uncomplicated Current Visit: Yes Status: Chronic (4) Nicotine dependence Current Visit: Yes Status: Chronic Qualifiers: Nicotine product type: cigarettes Substance use status: uncomplicated Qualified Code(s): F17.210 - Nicotine dependence, cigarettes, uncomplicated (5) Substance induced mood disorder Current Visit: Yes Status: Acute - Initial Treatment Plan Initial Treatment Plan: Psychoeducation provided. Detoxification in progress. Will order Vistaril 50mg q4h for anxiety. Benefits and side effects discussed. Verbal consent given.
[2018-05-13] MEDS: NICOTINE 14 MG/24 HOURS TOPICAL PATCH TD SCH (10:36)
[2018-05-13] MEDS: PRENATAL VITAMINS W/ FOLIC ACID TABLET (FP) PO SCH (10:36)
[2018-05-13] MEDS ORDERED: hydrOXYzine PAMOATE 50 MG CAPSULE (FP) PO PRN (17:56)
[2018-05-13] MEDS: THIAMINE HCL 100 MG TABLET (FP) PO SCH (22:13)
[2018-05-14] MEDS: chlordiazePOXIDE HCL 25 MG CAPSULE PO SCH ×3 (06:20→17:13)
[2018-05-14 10:07] LABS: HEMATOCRIT 43.3 % (35.4-49); HEMOGLOBIN 14.7 GM/dL (11.7-16.9); MCH 33.1 pg (25.7-33.7); MEAN CELL VOLUME 97.3 fl (80-96); MEAN PLT VOLUME 8.3 fl (7.5-11.1); PLATELET COUNT 256 K/MM3 (134-434); RBC 4.45 M/mm3 (4.00-5.60); RDW 14.7 % (11.9-15.9); WHITE BLOOD COUNT 3.9 K/mm3 (4.0-10.0)
[2018-05-14] MEDS: NICOTINE 14 MG/24 HOURS TOPICAL PATCH TD SCH (10:51)
[2018-05-14] MEDS: PRENATAL VITAMINS W/ FOLIC ACID TABLET (FP) PO SCH (10:51)
[2018-05-14 10:53] LABS: ALBUMIN 3.1 g/dl (3.4-5.0); ALK PHOS 74 U/L (45-117); ANION GAP 5 MMOL/L (8-16); BILIRUBIN,TOTAL 0.4 mg/dL (0.2-1); BLOOD UREA NITROGEN 14 mg/dL (7-18); CALCIUM 9.4 mg/dL (8.5-10.1); CHLORIDE 107 mmol/L (98-107); CO2 31 mmol/L (21-32); CREATININE 0.8 mg/dL (0.55-1.3); GLUCOSE,RANDOM 74 mg/dL (74-106); POTASSIUM 4.4 mmol/L (3.5-5.1); SGOT/AST 19 U/L (15-37); SGPT/ALT 23 U/L (13-61); SODIUM 143 mmol/L (136-145); TOT PROT 6.3 g/dl (6.4-8.2)
--- NOTE | 2018-05-14 16:31 | PN ---
[facility] CIWA - CIWA Score Nausea/Vomitin-No Nausea/No Vomiting Muscle Tremors: None Anxiety: 0-No Anxiety, at Ease Agitation: 0-Normal Activity Paroxysmal Sweats: 3 Orientation: 2-Disoriented Date<2 days Tacttile Disturbances: 1-Very Mild Itch/Numbness Auditory Disturbances: 0-None Visual Disturbances: 3-Moderate Sensitivity Headache: 0-None Present CIWA-Ar Total Score: 9 BHS Progress Note (SOAP) Subjective: Fatigue, Sweating, Body Aches. Objective: PATIENT A & O X 2 (UNCERTAIN ABOUT CURRENT DAY / DATE). PATIENT OBSERVED AMBULATING ON UNIT. IN NO ACUTE DISTRESS. 05/14/18 16:29 Vital Signs Temperature 97.9 F 05/14/18 13:04 Pulse Rate 80 05/14/18 13:04 Respiratory Rate 18 05/14/18 13:04 Blood Pressure 105/60 05/14/18 13:04 O2 Sat by Pulse Oximetry (%) Laboratory Tests 05/13/18 05/14/18 05/14/18 05:20 07:00 07:00 WBC 3.9 L RBC 4.45 Hgb 14.7 Hct 43.3 MCV 97.3 H MCH 33.1 MCHC 34.0 RDW 14.7 Plt Count 256 MPV 8.3 Sodium 143 Potassium 4.4 Chloride 107 Carbon Dioxide 31 Anion Gap 5 L BUN 14 Creatinine 0.8 Creat Clearance w eGFR > 60 Random Glucose 74 Calcium 9.4 Total Bilirubin 0.4 AST 19 ALT 23 Alkaline Phosphatase 74 Total Protein 6.3 L Albumin 3.1 L RPR Titer Cancelled 05/14/18 07:00 WBC RBC Hgb Hct MCV MCH MCHC RDW Plt Count MPV Sodium Potassium Chloride Carbon Dioxide Anion Gap BUN Creatinine Creat Clearance w eGFR Random Glucose Calcium Total Bilirubin AST ALT Alkaline Phosphatase Total Protein Albumin RPR Titer Nonreactive LABS NOTED. Assessment: 05/14/18 16:30 WITHDRAWAL SYMPTOMS. Plan: CONTINUE DETOX. INCREASE DAILY PO FLUID INTAKE.
[2018-05-14] MEDS: THIAMINE HCL 100 MG TABLET (FP) PO SCH (22:32)
[2018-05-14] MEDS: chlordiazePOXIDE 5 MG CAPSULE PO SCH (22:32)
[2018-05-15] MEDS: chlordiazePOXIDE 5 MG CAPSULE PO SCH ×3 (05:33→17:18)
--- NOTE | 2018-05-15 10:25 | PN ---
BHS Progress Note (SOAP) Subjective: pt without complaints, says will be going back to longterm. O: Vital Signs - 24 hr 05/14/18 05/14/18 05/14/18 13:04 17:48 21:57 Temperature 97.9 F 98.5 F 98.2 F Pulse Rate 80 82 83 Respiratory 18 18 18 Rate Blood Pressure 105/60 117/68 109/71 05/15/18 05/15/18 05/15/18 00:30 03:30 06:16 Temperature 97.8 F Pulse Rate 72 Respiratory 18 18 18 Rate Blood Pressure 108/68 05/15/18 09:12 Temperature 96.9 F L Pulse Rate 68 Respiratory 18 Rate Blood Pressure 110/68 Laboratory Tests 05/13/18 05/14/18 05/14/18 05:20 07:00 07:00 WBC 3.9 L RBC 4.45 Hgb 14.7 Hct 43.3 MCV 97.3 H MCH 33.1 MCHC 34.0 RDW 14.7 Plt Count 256 MPV 8.3 Sodium 143 Potassium 4.4 Chloride 107 Carbon Dioxide 31 Anion Gap 5 L BUN 14 Creatinine 0.8 Creat Clearance w eGFR > 60 Random Glucose 74 Calcium 9.4 Total Bilirubin 0.4 AST 19 ALT 23 Alkaline Phosphatase 74 Total Protein 6.3 L Albumin 3.1 L RPR Titer Cancelled 05/14/18 07:00 WBC RBC Hgb Hct MCV MCH MCHC RDW Plt Count MPV Sodium Potassium Chloride Carbon Dioxide Anion Gap BUN Creatinine Creat Clearance w eGFR Random Glucose Calcium Total Bilirubin AST ALT Alkaline Phosphatase Total Protein Albumin RPR Titer Nonreactive a/p: continue alcohol detox protocol- pt doing well
[2018-05-15] MEDS: PRENATAL VITAMINS W/ FOLIC ACID TABLET (FP) PO SCH (10:44)
[2018-05-15] MEDS: NICOTINE 14 MG/24 HOURS TOPICAL PATCH TD SCH (10:46)
[2018-05-15] MEDS: THIAMINE HCL 100 MG TABLET (FP) PO SCH (22:14)
[2018-05-15] MEDS: chlordiazePOXIDE HCL 10 MG CAPSULE PO SCH (22:14)
[2018-05-15] MEDS: MELATONIN 5 MG TABLETS PO PRN (22:14)
[2018-05-16] MEDS: chlordiazePOXIDE HCL 10 MG CAPSULE PO SCH ×2 (06:43→10:44)
--- NOTE | 2018-05-16 08:24 | DS ---
[facility] Detox Discharge Summary Admission Date: 05/12/18 Discharge Date: 05/16/18 - History Present History: Alcohol Dependence Additional Comments: 57 years old male admitted on 05/12/18 for alcohol withdrawal stabilization completed alcohol detox regimen aftercare [facility] Physical Exam Results Vital Signs: Vital Signs Temperature 97.1 F L 05/16/18 06:09 Pulse Rate 72 05/16/18 06:09 Respiratory Rate 16 05/16/18 06:09 Blood Pressure 100/65 05/16/18 06:09 O2 Sat by Pulse Oximetry (%) Pertinent Admission Physical Exam Findings: alcohol withdrawal sx Laboratory Last Values WBC 3.9 K/mm3 (4.0-10.0) L 05/14/18 07:00 RBC 4.45 M/mm3 (4.00-5.60) 05/14/18 07:00 Hgb 14.7 GM/dL (11.7-16.9) 05/14/18 07:00 Hct 43.3 % (35.4-49) 05/14/18 07:00 MCV 97.3 fl (80-96) H 05/14/18 07:00 MCH 33.1 pg (25.7-33.7) 05/14/18 07:00 MCHC 34.0 g/dl (32.0-35.9) 05/14/18 07:00 RDW 14.7 % (11.9-15.9) 05/14/18 07:00 Plt Count 256 K/MM3 (134-434) 05/14/18 07:00 MPV 8.3 fl (7.5-11.1) 05/14/18 07:00 Sodium 143 mmol/L (136-145) 05/14/18 07:00 Potassium 4.4 mmol/L (3.5-5.1) 05/14/18 07:00 Chloride 107 mmol/L (98-107) 05/14/18 07:00 Carbon Dioxide 31 mmol/L (21-32) 05/14/18 07:00 Anion Gap 5 MMOL/L (8-16) L 05/14/18 07:00 BUN 14 mg/dL (7-18) 05/14/18 07:00 Creatinine 0.8 mg/dL (0.55-1.3) 05/14/18 07:00 Creat Clearance w eGFR > 60 (>60) 05/14/18 07:00 Random Glucose 74 mg/dL (74-106) 05/14/18 07:00 Calcium 9.4 mg/dL (8.5-10.1) 05/14/18 07:00 Total Bilirubin 0.4 mg/dL (0.2-1) 05/14/18 07:00 AST 19 U/L (15-37) 05/14/18 07:00 ALT 23 U/L (13-61) 05/14/18 07:00 Alkaline Phosphatase 74 U/L (45-117) 05/14/18 07:00 Total Protein 6.3 g/dl (6.4-8.2) L 05/14/18 07:00 Albumin 3.1 g/dl (3.4-5.0) L 05/14/18 07:00 RPR Titer Nonreactive (NONREACTIVE) 05/14/18 07:00 lab noted - Treatment Hospital Course: Detox Protocol Followed, Detoxed Safely, Responded well, Discharged Condition Good, Rehab Referral Accepted Patient has Accepted a Rehab Referral to: [facility] - Medication Discharge Medications: Ambulatory Orders NK [No Known Home Medication] 11/14/16 - Diagnosis (1) Alcohol dependence with uncomplicated withdrawal Status: Acute (2) Drug-induced mood disorder Status: Suspected (3) Use of cane as ambulatory aid Status: Chronic (4) Weight loss Status: Acute (5) GERD (gastroesophageal reflux disease) Status: Chronic Qualifiers: Esophagitis presence: without esophagitis Qualified Code(s): K21.9 - Gastro -esophageal reflux disease without esophagitis (6) Nicotine dependence Status: Acute Qualifiers: Nicotine product type: cigarettes Substance use status: in withdrawal Qualified Code(s): F17.213 - Nicotine dependence, cigarettes, with withdrawal - AMA Did Patient Leave Against Medical Advice: No
[2018-05-16 09:21] VITALS: BP 101/62; PULSE 85; TEMP 98
[2018-05-16] MEDS: NICOTINE 14 MG/24 HOURS TOPICAL PATCH TD SCH (10:44)
[2018-05-16] MEDS: PRENATAL VITAMINS W/ FOLIC ACID TABLET (FP) PO SCH (10:44)
== END 2018-05-16 10:31 | disposition home or self-care (01) | DRG 774 ==
LOC: YASAS 15:14 → Y3N 21:53
PROVIDERS: ADMIT Surgery; ATTEND Surgery
PROC: HZ2ZZZZ Detoxification Services for Substance Abuse Treatment (ICD-10-PCS; principal; 2018-05-12)
DX: F10.230 Alcohol dependence with withdrawal, uncomplicated (principal); F14.20 Cocaine dependence, uncomplicated; F12.20 Cannabis dependence, uncomplicated; F17.213 Nicotine dependence, cigarettes, with withdrawal; F19.24 Other psychoactive substance dependence with psychoactive substance-induced mood disorder; F34.1 Dysthymic disorder; F41.9 Anxiety disorder, unspecified; K21.9 Gastro-esophageal reflux disease without esophagitis; D64.9 Anemia, unspecified; R63.4 Abnormal weight loss; Z68.22 Body mass index [BMI] 22.0-22.9, adult; Z99.89 Dependence on other enabling machines and devices; Z59.0 Homelessness
CPT/HCPCS: 36415; 80053; 85027; 86593

== ENCOUNTER 2020-05-31 10:08 | Inpatient (IN) | payer OTHER ==
[2020-05-31] MEDS ORDERED: NICOTINE POLACRILEX 2 MG GUM BUC PRN (11:33)
[2020-05-31] MEDS ORDERED: IBUPROFEN 400 MG TABLET (FP) PO PRN (11:33)
[2020-05-31] MEDS ORDERED: MAGNESIUM HYDROX 2400MG/30ML ORAL SUSPENSION 30 ML CUP PO PRN (11:33)
[2020-05-31] MEDS ORDERED: ONDANSETRON *ODT* 4 MG TABLET SL PRN (11:33)
[2020-05-31] MEDS ORDERED: MENTHOL/PHENOL 1 EACH UD MM PRN (11:33)
[2020-05-31] MEDS ORDERED: MAGNESIUM CITRATE 300 ML BOTTLE PO PRN (11:33)
[2020-05-31] MEDS ORDERED: METHOCARBAMOL 500 MG TABLET PO PRN (11:33)
[2020-05-31] MEDS ORDERED: BISMUTH SUBSALICYLATE 262 MG/15 ML BTL PO PRN (11:33)
[2020-05-31] MEDS ORDERED: chlordiazePOXIDE HCL 25 MG CAPSULE PO PRN (11:33)
[2020-05-31] MEDS ORDERED: ACETAMINOPHEN 325 MG TABLET (FP) PO PRN ×2 (11:33)
[2020-05-31] MEDS ORDERED: hydrOXYzine PAMOATE 50 MG CAPSULE (FP) PO PRN (13:34)
[2020-05-31] MEDS ORDERED: MELATONIN 5 MG TABLETS PO PRN (13:34)
[2020-05-31 13:47] LABS: HEMATOCRIT 50.8 % (35.4-49); HEMOGLOBIN 17.5 GM/dL (11.7-16.9); MCH 34.3 pg (25.7-33.7); MCHC 34.5 g/dl (32.0-35.9); MEAN CELL VOLUME 99.2 fl (80-96); MEAN PLT VOLUME 8.7 fl (7.5-11.1); PLATELET COUNT 230 K/MM3 (134-434); RBC 5.12 M/mm3 (4.00-5.60); RDW 13.9 % (11.9-15.9); WHITE BLOOD COUNT 5.1 K/mm3 (4.0-10.0)
[2020-05-31 13:50] LABS: POTASSIUM 3.7 mmol/L (3.5-5.1)
[2020-05-31 13:52] LABS: CALCIUM 9.8 mg/dL (8.5-10.1)
[2020-05-31 13:53] LABS: ALBUMIN 4.3 g/dl (3.4-5.0)
[2020-05-31 13:56] LABS: CREATININE 0.9 mg/dL (0.55-1.3)
[2020-05-31] MEDS ORDERED: hydrOXYzine PAMOATE 25 MG CAPSULE (FP) PO SCH (14:00)
[2020-05-31 14:44] LABS: BILIRUBIN,TOTAL 0.8 mg/dL (0.2-1)
[2020-05-31 14:50] LABS: HIV INTERPRETATION NEGATIVE (NEGATIVE)
[2020-05-31] MEDS: chlordiazePOXIDE HCL 25 MG CAPSULE PO SCH ×2 (17:41→23:49)
[2020-05-31] MEDS ORDERED: MELATONIN 5 MG TABLETS PO SCH (22:00)
[2020-05-31] MEDS: THIAMINE HCL 100 MG TABLET (FP) PO SCH (23:49)
[2020-06-01] MEDS: chlordiazePOXIDE HCL 25 MG CAPSULE PO SCH ×4 (05:31→22:52)
[2020-06-01] MEDS: PRENATAL VITAMINS W/ FOLIC ACID TABLET (FP) PO SCH (10:15)
[2020-06-01] MEDS: THIAMINE HCL 100 MG TABLET (FP) PO SCH (22:53)
[2020-06-02] MEDS: chlordiazePOXIDE HCL 25 MG CAPSULE PO SCH ×4 (05:53→23:51)
[2020-06-02] MEDS: PRENATAL VITAMINS W/ FOLIC ACID TABLET (FP) PO SCH (10:31)
[2020-06-02 11:54] LABS: POTASSIUM 3.9 mmol/L (3.5-5.1)
[2020-06-02 11:58] LABS: BLOOD UREA NITROGEN 16.4 mg/dL (7-18); CALCIUM 8.6 mg/dL (8.5-10.1)
[2020-06-02 12:02] LABS: CREATININE 0.7 mg/dL (0.55-1.3)
[2020-06-02] MEDS: SERTRALINE HCL 25 MG TABLET (FP) PO SCH (15:25)
[2020-06-02] MEDS: THIAMINE HCL 100 MG TABLET (FP) PO SCH (23:50)
[2020-06-03] MEDS ORDERED: chlordiazePOXIDE HCL 10 MG CAPSULE PO PRN
[2020-06-03] MEDS: chlordiazePOXIDE HCL 10 MG CAPSULE PO SCH ×4 (05:54→22:11)
[2020-06-03] MEDS: PRENATAL VITAMINS W/ FOLIC ACID TABLET (FP) PO SCH (10:49)
[2020-06-03] MEDS: SERTRALINE HCL 25 MG TABLET (FP) PO SCH (10:49)
[2020-06-03] MEDS: THIAMINE HCL 100 MG TABLET (FP) PO SCH (22:11)
[2020-06-04] MEDS: chlordiazePOXIDE HCL 10 MG CAPSULE PO SCH ×2 (05:27→17:59)
[2020-06-04] MEDS: PRENATAL VITAMINS W/ FOLIC ACID TABLET (FP) PO SCH (10:32)
[2020-06-04] MEDS: SERTRALINE HCL 25 MG TABLET (FP) PO SCH (10:32)
[2020-06-04] MEDS: MAG HYDROX/AL HYDROX/SIMETH 30 ML UNIT-DOSE CUP PO PRN ×2 (13:38→19:57)
[2020-06-04] MEDS: THIAMINE HCL 100 MG TABLET (FP) PO SCH (22:48)
[2020-06-05] MEDS ORDERED: chlordiazePOXIDE HCL 10 MG CAPSULE PO ONE (05:00)
[2020-06-05 10:50] VITALS: BP 124/71; PULSE 78; TEMP 97.3
[2020-06-05] MEDS: PRENATAL VITAMINS W/ FOLIC ACID TABLET (FP) PO SCH (10:52)
[2020-06-05] MEDS: SERTRALINE HCL 25 MG TABLET (FP) PO SCH (10:52)
== END 2020-06-05 11:12 | disposition home or self-care (01) | DRG 774 ==
LOC: YASAS 10:08 → Y6N 11:27
PROVIDERS: ADMIT Allergy & Immunology; ATTEND Allergy & Immunology
PROC: HZ2ZZZZ Detoxification Services for Substance Abuse Treatment (ICD-10-PCS; principal; 2020-05-31)
DX: F10.230 Alcohol dependence with withdrawal, uncomplicated (principal); F14.20 Cocaine dependence, uncomplicated; F12.20 Cannabis dependence, uncomplicated; F19.280 Other psychoactive substance dependence with psychoactive substance-induced anxiety disorder; F19.282 Other psychoactive substance dependence with psychoactive substance-induced sleep disorder; F31.81 Bipolar II disorder; F39 Unspecified mood [affective] disorder; F34.1 Dysthymic disorder; M54.5 Low back pain; G89.29 Other chronic pain; R63.4 Abnormal weight loss; Z68.20 Body mass index [BMI] 20.0-20.9, adult; Z99.89 Dependence on other enabling machines and devices; Z87.81 Personal history of (healed) traumatic fracture; Z86.79 Personal history of other diseases of the circulatory system
CPT/HCPCS: 36415; 80048; 80053; 85027; 86780; 87389; C9803; U0003

== ENCOUNTER 2020-07-16 18:06 | Inpatient (IN) | payer OTHER ==
[2020-07-16] MEDS ORDERED: MAGNESIUM HYDROX 2400MG/30ML ORAL SUSPENSION 30 ML CUP PO PRN (21:27)
[2020-07-16] MEDS ORDERED: MENTHOL/PHENOL 1 EACH UD MM PRN (21:27)
[2020-07-16] MEDS ORDERED: NICOTINE POLACRILEX 2 MG GUM BUC PRN (21:27)
[2020-07-16] MEDS ORDERED: ACETAMINOPHEN 325 MG TABLET (FP) PO PRN ×2 (21:27)
[2020-07-16] MEDS ORDERED: METHOCARBAMOL 500 MG TABLET PO PRN (21:27)
[2020-07-16] MEDS ORDERED: MAG HYDROX/AL HYDROX/SIMETH 30 ML UNIT-DOSE CUP PO PRN (21:27)
[2020-07-16] MEDS ORDERED: IBUPROFEN 400 MG TABLET (FP) PO PRN (21:27)
[2020-07-16] MEDS ORDERED: chlordiazePOXIDE HCL 25 MG CAPSULE PO PRN (21:27)
[2020-07-16] MEDS ORDERED: MAGNESIUM CITRATE 300 ML BOTTLE PO PRN (21:27)
[2020-07-16] MEDS ORDERED: BISMUTH SUBSALICYLATE 524 MG/30 ML UD PO PRN (21:27)
[2020-07-16] MEDS ORDERED: ONDANSETRON *ODT* 4 MG TABLET SL PRN (21:27)
[2020-07-16 21:37] VITALS: BMI 23.2
[2020-07-17] MEDS: THIAMINE HCL 100 MG TABLET (FP) PO SCH ×2 (00:23→22:26)
[2020-07-17] MEDS: chlordiazePOXIDE HCL 25 MG CAPSULE PO SCH ×5 (00:23→22:26)
[2020-07-17] MEDS: MELATONIN 5 MG TABLETS PO SCH ×2 (00:23→22:26)
[2020-07-17 09:32] LABS: HEMATOCRIT 40.4 % (35.4-49); HEMOGLOBIN 13.9 GM/dL (11.7-16.9); MCH 33.8 pg (25.7-33.7); MCHC 34.5 g/dl (32.0-35.9); MEAN PLT VOLUME 8.6 fl (7.5-11.1); PLATELET COUNT 185 K/MM3 (134-434); RBC 4.13 M/mm3 (4.00-5.60); RDW 14.2 % (11.9-15.9); WHITE BLOOD COUNT 4.8 K/mm3 (4.0-10.0)
[2020-07-17 10:04] LABS: ALBUMIN 3.1 g/dl (3.4-5.0)
[2020-07-17 10:05] LABS: CALCIUM 8.8 mg/dL (8.5-10.1)
[2020-07-17 10:06] LABS: BILIRUBIN,TOTAL 0.3 mg/dL (0.2-1)
[2020-07-17 10:09] LABS: CREATININE 0.8 mg/dL (0.55-1.3)
[2020-07-17] MEDS: PRENATAL VITAMINS W/ FOLIC ACID TABLET (FP) PO SCH (10:09)
[2020-07-17 10:11] LABS: TOT PROT 6.2 g/dl (6.4-8.2)
[2020-07-17] MEDS: NICOTINE 14 MG/24 HOURS TOPICAL PATCH TD SCH (10:11)
[2020-07-17] MEDS: traZODone HCL 50 MG TABLET (FP) PO SCH (22:26)
[2020-07-18] MEDS: chlordiazePOXIDE HCL 25 MG CAPSULE PO SCH ×4 (05:33→22:18)
[2020-07-18] MEDS: PRENATAL VITAMINS W/ FOLIC ACID TABLET (FP) PO SCH (10:20)
[2020-07-18] MEDS: NICOTINE 14 MG/24 HOURS TOPICAL PATCH TD SCH (10:21)
[2020-07-18] MEDS: THIAMINE HCL 100 MG TABLET (FP) PO SCH (22:18)
[2020-07-18] MEDS: MELATONIN 5 MG TABLETS PO SCH (22:18)
[2020-07-18] MEDS: traZODone HCL 50 MG TABLET (FP) PO SCH (22:18)
[2020-07-19] MEDS ORDERED: chlordiazePOXIDE HCL 10 MG CAPSULE PO PRN
[2020-07-19] MEDS: chlordiazePOXIDE HCL 10 MG CAPSULE PO SCH ×4 (05:22→22:45)
[2020-07-19 08:09] LABS: SARS-CoV-2 NAA Not Detected (Not Detected)
[2020-07-19] MEDS: PRENATAL VITAMINS W/ FOLIC ACID TABLET (FP) PO SCH (10:18)
[2020-07-19] MEDS: NICOTINE 14 MG/24 HOURS TOPICAL PATCH TD SCH (10:18)
[2020-07-19] MEDS: traZODone HCL 50 MG TABLET (FP) PO SCH (22:44)
[2020-07-19] MEDS: MELATONIN 5 MG TABLETS PO SCH (22:44)
[2020-07-19] MEDS: THIAMINE HCL 100 MG TABLET (FP) PO SCH (22:45)
[2020-07-20] MEDS: chlordiazePOXIDE HCL 10 MG CAPSULE PO SCH ×2 (05:58→17:42)
[2020-07-20] MEDS: PRENATAL VITAMINS W/ FOLIC ACID TABLET (FP) PO SCH (10:07)
[2020-07-20] MEDS: NICOTINE 14 MG/24 HOURS TOPICAL PATCH TD SCH (10:08)
[2020-07-20] MEDS: traZODone HCL 50 MG TABLET (FP) PO SCH (22:36)
[2020-07-20] MEDS: THIAMINE HCL 100 MG TABLET (FP) PO SCH (22:36)
[2020-07-20] MEDS: MELATONIN 5 MG TABLETS PO SCH (22:36)
[2020-07-21] MEDS ORDERED: chlordiazePOXIDE HCL 10 MG CAPSULE PO ONE (05:00)
[2020-07-21 11:43] VITALS: BP 119/82; PULSE 93; TEMP 97.1
== END 2020-07-21 12:53 | disposition other institution (70) | DRG 774 ==
LOC: YASAS 18:06 → Y3N 21:35
PROVIDERS: ADMIT Allergy & Immunology; ATTEND Allergy & Immunology
PROC: HZ2ZZZZ Detoxification Services for Substance Abuse Treatment (ICD-10-PCS; principal; 2020-07-16)
DX: F10.230 Alcohol dependence with withdrawal, uncomplicated (principal); F14.20 Cocaine dependence, uncomplicated; F12.20 Cannabis dependence, uncomplicated; F17.210 Nicotine dependence, cigarettes, uncomplicated; F31.9 Bipolar disorder, unspecified; F19.24 Other psychoactive substance dependence with psychoactive substance-induced mood disorder; D50.9 Iron deficiency anemia, unspecified; K21.9 Gastro-esophageal reflux disease without esophagitis; G47.00 Insomnia, unspecified; M54.5 Low back pain; G89.29 Other chronic pain; Z86.79 Personal history of other diseases of the circulatory system; Z87.81 Personal history of (healed) traumatic fracture; Z56.0 Unemployment, unspecified; Z59.0 Homelessness; Z91.19 Patient's noncompliance with other medical treatment and regimen
CPT/HCPCS: 36415; 80053; 85027; 86780; 93005; 93010; C9803; U0003; U0005

== ENCOUNTER 2020-07-21 12:59 | Inpatient (IN) | payer OTHER ==
[2020-07-21] MEDS ORDERED: NICOTINE POLACRILEX 2 MG GUM BUC PRN (13:15)
[2020-07-21] MEDS ORDERED: MAG HYDROX/AL HYDROX/SIMETH 30 ML UNIT-DOSE CUP PO PRN (13:15)
[2020-07-21] MEDS ORDERED: IBUPROFEN 400 MG TABLET (FP) PO PRN (13:15)
[2020-07-21] MEDS ORDERED: guaiFENesin 200 MG/10 ML 10 ML UNIT-DOSE CUPS PO PRN (13:15)
[2020-07-21] MEDS ORDERED: P-EPHED 60MG/TRIPROLIDI 2.5MG TABLET PO PRN (13:15)
[2020-07-21] MEDS ORDERED: LOPERAMIDE HCL 2 MG CAPSULE PO PRN (13:15)
[2020-07-21] MEDS ORDERED: MAGNESIUM HYDROX 2400MG/30ML ORAL SUSPENSION 30 ML CUP PO PRN (13:15)
[2020-07-21] MEDS ORDERED: ACETAMINOPHEN 325 MG TABLET (FP) PO PRN (13:15)
[2020-07-21] MEDS ORDERED: MAGNESIUM CITRATE 300 ML BOTTLE PO PRN (13:15)
[2020-07-21] MEDS ORDERED: MENTHOL/PHENOL 1 EACH UD MM PRN (13:15)
[2020-07-21] MEDS: MELATONIN 5 MG TABLETS PO SCH (21:54)
[2020-07-21] MEDS: traZODone HCL 50 MG TABLET (FP) PO SCH (21:54)
[2020-07-21] MEDS: THIAMINE HCL 100 MG TABLET (FP) PO SCH (21:55)
[2020-07-22] MEDS: PRENATAL VITAMINS W/ FOLIC ACID TABLET (FP) PO SCH (09:57)
[2020-07-22] MEDS: NICOTINE 14 MG/24 HOURS TOPICAL PATCH TD SCH (09:57)
[2020-07-22] MEDS: THIAMINE HCL 100 MG TABLET (FP) PO SCH (21:09)
[2020-07-22] MEDS: traZODone HCL 50 MG TABLET (FP) PO SCH (21:09)
[2020-07-22] MEDS: MELATONIN 5 MG TABLETS PO SCH (21:09)
[2020-07-22] MEDS: hydrOXYzine PAMOATE 25 MG CAPSULE (FP) PO PRN (21:09)
[2020-07-23] MEDS: PRENATAL VITAMINS W/ FOLIC ACID TABLET (FP) PO SCH (10:06)
[2020-07-23] MEDS: NICOTINE 14 MG/24 HOURS TOPICAL PATCH TD SCH (10:07)
[2020-07-23] MEDS ORDERED: TUBERCULIN PPD 5 TU/0.1ML VIAL ID ONE (14:13)
[2020-07-23] MEDS: THIAMINE HCL 100 MG TABLET (FP) PO SCH (21:38)
[2020-07-23] MEDS: traZODone HCL 50 MG TABLET (FP) PO SCH (21:38)
[2020-07-23] MEDS: hydrOXYzine PAMOATE 25 MG CAPSULE (FP) PO PRN (21:38)
[2020-07-23] MEDS: MELATONIN 5 MG TABLETS PO SCH (21:38)
[2020-07-24] MEDS: PRENATAL VITAMINS W/ FOLIC ACID TABLET (FP) PO SCH (09:50)
[2020-07-24] MEDS: NICOTINE 14 MG/24 HOURS TOPICAL PATCH TD SCH (09:51)
[2020-07-24] MEDS: THIAMINE HCL 100 MG TABLET (FP) PO SCH (21:28)
[2020-07-24] MEDS: MELATONIN 5 MG TABLETS PO SCH (21:28)
[2020-07-24] MEDS: traZODone HCL 50 MG TABLET (FP) PO SCH (21:28)
[2020-07-25 04:06] LABS: SARS-CoV-2 NAA Not Detected (Not Detected)
[2020-07-25] MEDS: PRENATAL VITAMINS W/ FOLIC ACID TABLET (FP) PO SCH (10:08)
[2020-07-25] MEDS: NICOTINE 14 MG/24 HOURS TOPICAL PATCH TD SCH (10:08)
[2020-07-25] MEDS: traZODone HCL 50 MG TABLET (FP) PO SCH (21:08)
[2020-07-25] MEDS: MELATONIN 5 MG TABLETS PO SCH (21:09)
[2020-07-25] MEDS: THIAMINE HCL 100 MG TABLET (FP) PO SCH (21:10)
[2020-07-26 07:12] VITALS: BP 123/84; PULSE 67; TEMP 97.6
[2020-07-26] MEDS: NICOTINE 14 MG/24 HOURS TOPICAL PATCH TD SCH (09:55)
[2020-07-26] MEDS: PRENATAL VITAMINS W/ FOLIC ACID TABLET (FP) PO SCH (09:55)
== END 2020-07-26 12:45 | disposition home or self-care (01) | DRG 772 ==
LOC: YASAS 12:59 → Y5N 13:00
PROVIDERS: ADMIT Allergy & Immunology; ATTEND Allergy & Immunology
PROC: HZ42ZZZ Group Counseling for Substance Abuse Treatment, Cognitive-Behavioral (ICD-10-PCS; principal; 2020-07-21)
DX: F10.20 Alcohol dependence, uncomplicated (principal); F14.20 Cocaine dependence, uncomplicated; F12.20 Cannabis dependence, uncomplicated; F17.210 Nicotine dependence, cigarettes, uncomplicated; F39 Unspecified mood [affective] disorder; F41.9 Anxiety disorder, unspecified; D64.9 Anemia, unspecified; K21.9 Gastro-esophageal reflux disease without esophagitis; Z56.0 Unemployment, unspecified; Z59.0 Homelessness
CPT/HCPCS: C9803; U0003; U0005

== ENCOUNTER 2020-12-25 15:53 | Inpatient (IN) | payer OTHER ==
[2020-12-25] MEDS ORDERED: IBUPROFEN 400 MG TABLET (FP) PO PRN (21:47)
[2020-12-25] MEDS ORDERED: ACETAMINOPHEN 325 MG TABLET (FP) PO PRN ×2 (21:47)
[2020-12-25] MEDS ORDERED: BISMUTH SUBSALICYLATE 524 MG/30 ML PO PRN (21:47)
[2020-12-25] MEDS ORDERED: MENTHOL/PHENOL 1 EACH UD MM PRN (21:47)
[2020-12-25] MEDS ORDERED: MAGNESIUM HYDROX 2400MG/30ML ORAL SUSPENSION 30 ML CUP PO PRN (21:47)
[2020-12-25] MEDS ORDERED: hydrOXYzine PAMOATE 25 MG CAPSULE (FP) PO PRN (21:47)
[2020-12-25] MEDS ORDERED: ONDANSETRON *ODT* 4 MG TABLET SL PRN (21:47)
[2020-12-25] MEDS ORDERED: METHOCARBAMOL 500 MG TABLET PO PRN (21:47)
[2020-12-25] MEDS ORDERED: MAGNESIUM CITRATE 300 ML BOTTLE PO PRN (21:47)
[2020-12-25] MEDS ORDERED: MAG HYDROX/AL HYDROX/SIMETH 30 ML UNIT-DOSE CUP PO PRN (21:47)
[2020-12-25] MEDS ORDERED: THIAMINE HCL 100 MG TABLET (FP) PO SCH (22:00)
[2020-12-25] MEDS ORDERED: MELATONIN 5 MG TABLETS PO SCH (22:00)
[2020-12-26 02:00] VITALS: BMI 23.3
[2020-12-26] MEDS ORDERED: MAGNESIUM HYDROX 2400MG/30ML ORAL SUSPENSION 30 ML CUP PO PRN (08:47)
[2020-12-26] MEDS ORDERED: MAGNESIUM CITRATE 300 ML BOTTLE PO PRN (08:47)
[2020-12-26] MEDS ORDERED: MAG HYDROX/AL HYDROX/SIMETH 30 ML UNIT-DOSE CUP PO PRN (08:47)
[2020-12-26] MEDS ORDERED: IBUPROFEN 400 MG TABLET (FP) PO PRN (08:47)
[2020-12-26] MEDS ORDERED: NICOTINE 10 MG CARTRIDGE (INHALER) IH PRN (08:47)
[2020-12-26] MEDS ORDERED: guaiFENesin 200 MG/10 ML 10 ML UNIT-DOSE CUPS PO PRN (08:47)
[2020-12-26] MEDS ORDERED: LOPERAMIDE HCL 2 MG CAPSULE PO PRN (08:47)
[2020-12-26] MEDS ORDERED: ACETAMINOPHEN 325 MG TABLET (FP) PO PRN (08:47)
[2020-12-26] MEDS ORDERED: P-EPHED 60MG/TRIPROLIDI 2.5MG TABLET PO PRN (08:47)
[2020-12-26] MEDS ORDERED: PRENATAL VITAMINS W/ FOLIC ACID TABLET (FP) PO SCH (10:00)
[2020-12-26 10:27] LABS: HEMATOCRIT 41.9 % (35.4-49); HEMOGLOBIN 14.4 GM/dL (11.7-16.9); MCH 32.9 pg (25.7-33.7); MCHC 34.3 g/dl (32.0-35.9); MEAN PLT VOLUME 7.7 fl (7.5-11.1); PLATELET COUNT 223 10^3/uL (134-434); RBC 4.36 M/mm3 (4.00-5.60); WHITE BLOOD COUNT 3.8 K/mm3 (4.0-10.0)
[2020-12-26] MEDS ORDERED: NICOTINE 7 MG/24 HOURS TOPICAL PATCH TD ONE (10:29)
[2020-12-26] MEDS ORDERED: hydrOXYzine PAMOATE 25 MG CAPSULE (FP) PO ONE (10:29)
[2020-12-26] MEDS: NICOTINE 7 MG/24 HOURS TOPICAL PATCH TD SCH (10:32)
[2020-12-26] MEDS: PRENATAL VITAMINS W/ FOLIC ACID TABLET (FP) PO SCH (10:32)
[2020-12-26] MEDS: hydrOXYzine PAMOATE 25 MG CAPSULE (FP) PO SCH ×4 (10:32→21:16)
[2020-12-26 10:42] LABS: ALBUMIN 3.4 g/dl (3.4-5.0); BLOOD UREA NITROGEN 28.3 mg/dL (7-18); CALCIUM 9.1 mg/dL (8.5-10.1)
[2020-12-26 10:46] LABS: BILIRUBIN,TOTAL 0.8 mg/dL (0.2-1); TOT PROT 6.7 g/dl (6.4-8.2)
[2020-12-26 11:02] LABS: SYPHILIS W/ RPR CONF NON-REACTIVE (NONREACTIVE)
[2020-12-26] MEDS: MELATONIN 5 MG TABLETS PO SCH (21:14)
[2020-12-26] MEDS: traZODone HCL 50 MG TABLET (FP) PO SCH (21:14)
[2020-12-26] MEDS: THIAMINE HCL 100 MG TABLET (FP) PO SCH (21:14)
[2020-12-27] MEDS: hydrOXYzine PAMOATE 25 MG CAPSULE (FP) PO SCH ×3 (06:30→13:46)
[2020-12-27] MEDS: NICOTINE 7 MG/24 HOURS TOPICAL PATCH TD SCH (09:36)
[2020-12-27] MEDS: PRENATAL VITAMINS W/ FOLIC ACID TABLET (FP) PO SCH (09:36)
[2020-12-27] MEDS: ARIPiprazole 5 MG TABLET PO SCH (09:37)
[2020-12-27 15:13] LABS: PH,URINE 6.5 (5.0-8.0); URINE APPEARANCE CLEAR; URINE BILIRUBIN NEGATIVE (NEGATIVE); URINE COLOR YELLOW; URINE GLUCOSE (UA) NEGATIVE (NEGATIVE); URINE KETONE NEGATIVE (NEGATIVE); URINE LEUK ESTERASE NEGATIVE (NEGATIVE); URINE NITRITE NEGATIVE (NEGATIVE); URINE PROTEIN NEGATIVE (NEGATIVE)
[2020-12-27] MEDS: MELATONIN 5 MG TABLETS PO SCH (21:41)
[2020-12-27] MEDS: traZODone HCL 50 MG TABLET (FP) PO SCH (21:41)
[2020-12-27] MEDS: THIAMINE HCL 100 MG TABLET (FP) PO SCH (21:41)
[2020-12-28] MEDS: hydrOXYzine PAMOATE 25 MG CAPSULE (FP) PO PRN (06:16)
[2020-12-28] MEDS: NICOTINE 7 MG/24 HOURS TOPICAL PATCH TD SCH (10:00)
[2020-12-28] MEDS: PRENATAL VITAMINS W/ FOLIC ACID TABLET (FP) PO SCH (10:00)
[2020-12-28] MEDS: ARIPiprazole 5 MG TABLET PO SCH (10:00)
[2020-12-28] MEDS: THIAMINE HCL 100 MG TABLET (FP) PO SCH (21:20)
[2020-12-28] MEDS: MELATONIN 5 MG TABLETS PO SCH (21:20)
[2020-12-28] MEDS: traZODone HCL 50 MG TABLET (FP) PO SCH (21:20)
[2020-12-29] MEDS: ARIPiprazole 5 MG TABLET PO SCH (09:58)
[2020-12-29] MEDS: PRENATAL VITAMINS W/ FOLIC ACID TABLET (FP) PO SCH (09:58)
[2020-12-29] MEDS: NICOTINE 7 MG/24 HOURS TOPICAL PATCH TD SCH (09:58)
[2020-12-29] MEDS: traZODone HCL 50 MG TABLET (FP) PO SCH (21:43)
[2020-12-29] MEDS: THIAMINE HCL 100 MG TABLET (FP) PO SCH (21:43)
[2020-12-29] MEDS: MELATONIN 5 MG TABLETS PO SCH (21:44)
[2020-12-30] MEDS: PRENATAL VITAMINS W/ FOLIC ACID TABLET (FP) PO SCH (09:43)
[2020-12-30] MEDS: NICOTINE 7 MG/24 HOURS TOPICAL PATCH TD SCH (09:43)
[2020-12-30] MEDS ORDERED: PT OWN MED DRAWER 7, Y5N ONE (09:44)
[2020-12-30] MEDS: ARIPiprazole 5 MG TABLET PO SCH (10:10)
[2020-12-30] MEDS: traZODone HCL 50 MG TABLET (FP) PO SCH (21:18)
[2020-12-30] MEDS: THIAMINE HCL 100 MG TABLET (FP) PO SCH (21:18)
[2020-12-30] MEDS: MELATONIN 5 MG TABLETS PO SCH (21:19)
[2020-12-31] MEDS ORDERED: PT OWN MED DRAWER 7, Y5N ONE ×3 (08:29→13:10)
[2020-12-31] MEDS: PRENATAL VITAMINS W/ FOLIC ACID TABLET (FP) PO SCH (10:05)
[2020-12-31] MEDS: NICOTINE 7 MG/24 HOURS TOPICAL PATCH TD SCH (10:05)
[2020-12-31] MEDS: ARIPiprazole 5 MG TABLET PO SCH (10:27)
[2020-12-31] MEDS: THIAMINE HCL 100 MG TABLET (FP) PO SCH (21:33)
[2020-12-31] MEDS: traZODone HCL 50 MG TABLET (FP) PO SCH (21:33)
[2020-12-31] MEDS: MELATONIN 5 MG TABLETS PO SCH (21:33)
[2021-01-01 07:19] VITALS: TEMP 97.3
[2021-01-01] MEDS: PRENATAL VITAMINS W/ FOLIC ACID TABLET (FP) PO SCH (09:54)
[2021-01-01] MEDS: ARIPiprazole 5 MG TABLET PO SCH (09:54)
[2021-01-01] MEDS: NICOTINE 7 MG/24 HOURS TOPICAL PATCH TD SCH (09:55)
[2021-01-01] MEDS ORDERED: CYCLOBENZAPRINE HCL 5 MG TABLET PO ONE (11:00)
[2021-01-01] MEDS: hydrOXYzine PAMOATE 25 MG CAPSULE (FP) PO PRN (21:20)
[2021-01-01] MEDS: MELATONIN 5 MG TABLETS PO SCH (21:20)
[2021-01-01] MEDS: THIAMINE HCL 100 MG TABLET (FP) PO SCH (21:20)
[2021-01-01] MEDS: traZODone HCL 50 MG TABLET (FP) PO SCH (21:20)
[2021-01-02 06:49] VITALS: BP 123/85; PULSE 72
[2021-01-02] MEDS: PRENATAL VITAMINS W/ FOLIC ACID TABLET (FP) PO SCH (09:51)
[2021-01-02] MEDS: ARIPiprazole 5 MG TABLET PO SCH (09:51)
[2021-01-02] MEDS: NICOTINE 7 MG/24 HOURS TOPICAL PATCH TD SCH (09:52)
== END 2021-01-02 10:52 | disposition home or self-care (01) | DRG 772 ==
LOC: YASAS 15:53 → Y3E 12-26 09:46
PROVIDERS: ADMIT Allergy & Immunology; ATTEND Allergy & Immunology
PROC: HZ42ZZZ Group Counseling for Substance Abuse Treatment, Cognitive-Behavioral (ICD-10-PCS; principal; 2020-12-26)
DX: F14.20 Cocaine dependence, uncomplicated (principal); F10.20 Alcohol dependence, uncomplicated; F10.10 Alcohol abuse, uncomplicated; F17.210 Nicotine dependence, cigarettes, uncomplicated; F31.9 Bipolar disorder, unspecified; F39 Unspecified mood [affective] disorder; F19.280 Other psychoactive substance dependence with psychoactive substance-induced anxiety disorder; F19.282 Other psychoactive substance dependence with psychoactive substance-induced sleep disorder; M25.511 Pain in right shoulder; K21.9 Gastro-esophageal reflux disease without esophagitis; M54.5 Low back pain; G89.29 Other chronic pain; I49.9 Cardiac arrhythmia, unspecified; Z56.0 Unemployment, unspecified
CPT/HCPCS: 36415; 80053; 81003; 85027; 86780; 86803; C9803; U0003; U0005

== ENCOUNTER 2021-01-15 19:39 | Inpatient (IN) | payer OTHER ==
[2021-01-15 21:10] VITALS: BMI 23.6
[2021-01-15] MEDS ORDERED: MENTHOL/PHENOL 1 EACH UD MM PRN (21:47)
[2021-01-15] MEDS ORDERED: ACETAMINOPHEN 325 MG TABLET (FP) PO PRN (21:47)
[2021-01-15] MEDS ORDERED: MAGNESIUM HYDROX 2400MG/30ML ORAL SUSPENSION 30 ML CUP PO PRN (21:47)
[2021-01-15] MEDS ORDERED: MAG HYDROX/AL HYDROX/SIMETH 30 ML UNIT-DOSE CUP PO PRN (21:47)
[2021-01-15] MEDS ORDERED: METHOCARBAMOL 500 MG TABLET PO PRN (21:47)
[2021-01-15] MEDS ORDERED: ONDANSETRON *ODT* 4 MG TABLET SL PRN (21:47)
[2021-01-15] MEDS ORDERED: BISMUTH SUBSALICYLATE 524 MG/30 ML PO PRN (21:47)
[2021-01-15] MEDS ORDERED: DICYCLOMINE HCL 10 MG CAPSULE PO PRN (21:47)
[2021-01-15] MEDS ORDERED: MAGNESIUM CITRATE 300 ML BOTTLE PO PRN (21:47)
[2021-01-15] MEDS ORDERED: NICOTINE 10 MG CARTRIDGE (INHALER) IH PRN (21:47)
[2021-01-15] MEDS ORDERED: IBUPROFEN 400 MG TABLET (FP) PO PRN (21:47)
[2021-01-16] MEDS ORDERED: hydrOXYzine PAMOATE 25 MG CAPSULE (FP) PO ONE (00:53)
[2021-01-16] MEDS: hydrOXYzine PAMOATE 25 MG CAPSULE (FP) PO PRN (00:57)
[2021-01-16] MEDS: MELATONIN 5 MG TABLETS PO SCH ×2 (00:57→21:28)
[2021-01-16] MEDS: THIAMINE HCL 100 MG TABLET (FP) PO SCH ×2 (00:57→21:28)
[2021-01-16] MEDS: NICOTINE 21 MG/24 HOURS TOPICAL PATCH TD SCH (10:16)
[2021-01-16] MEDS: PRENATAL VITAMINS W/ FOLIC ACID TABLET (FP) PO SCH (10:16)
[2021-01-16 10:19] LABS: HEMATOCRIT 41.7 % (35.4-49); HEMOGLOBIN 14.6 GM/dL (11.7-16.9); MCH 33.9 pg (25.7-33.7); MEAN CELL VOLUME 96.8 fl (80-96); MEAN PLT VOLUME 8.3 fl (7.5-11.1); PLATELET COUNT 190 10^3/uL (134-434); RBC 4.31 M/mm3 (4.00-5.60); RDW 14.6 % (11.9-15.9); WHITE BLOOD COUNT 3.9 K/mm3 (4.0-10.0)
[2021-01-16 10:29] LABS: CALCIUM 8.3 mg/dL (8.5-10.1)
[2021-01-16 10:30] LABS: BLOOD UREA NITROGEN 28.5 mg/dL (7-18)
[2021-01-16 10:31] LABS: BILIRUBIN,TOTAL 0.4 mg/dL (0.2-1); TOT PROT 6.6 g/dl (6.4-8.2)
[2021-01-16 10:33] LABS: CREATININE 0.8 mg/dL (0.55-1.3)
[2021-01-16] MEDS: traZODone HCL 50 MG TABLET (FP) PO SCH (21:28)
[2021-01-17] MEDS: PRENATAL VITAMINS W/ FOLIC ACID TABLET (FP) PO SCH (09:37)
[2021-01-17] MEDS: ARIPiprazole 5 MG TABLET PO SCH (09:37)
[2021-01-17] MEDS: NICOTINE 21 MG/24 HOURS TOPICAL PATCH TD SCH (09:37)
[2021-01-17] MEDS: THIAMINE HCL 100 MG TABLET (FP) PO SCH (21:51)
[2021-01-17] MEDS: traZODone HCL 50 MG TABLET (FP) PO SCH (21:51)
[2021-01-17] MEDS: hydrOXYzine PAMOATE 25 MG CAPSULE (FP) PO PRN (21:52)
[2021-01-18] MEDS: PRENATAL VITAMINS W/ FOLIC ACID TABLET (FP) PO SCH (09:44)
[2021-01-18] MEDS: ARIPiprazole 5 MG TABLET PO SCH (09:44)
[2021-01-18] MEDS: NICOTINE 21 MG/24 HOURS TOPICAL PATCH TD SCH (09:45)
[2021-01-18] MEDS: traZODone HCL 50 MG TABLET (FP) PO SCH (21:10)
[2021-01-18] MEDS: THIAMINE HCL 100 MG TABLET (FP) PO SCH (21:10)
[2021-01-18] MEDS: hydrOXYzine PAMOATE 25 MG CAPSULE (FP) PO PRN (21:10)
[2021-01-19] MEDS: ARIPiprazole 5 MG TABLET PO SCH (09:47)
[2021-01-19] MEDS: NICOTINE 21 MG/24 HOURS TOPICAL PATCH TD SCH (09:47)
[2021-01-19] MEDS: PRENATAL VITAMINS W/ FOLIC ACID TABLET (FP) PO SCH (09:48)
[2021-01-19] MEDS: traZODone HCL 50 MG TABLET (FP) PO SCH (21:23)
[2021-01-19] MEDS: THIAMINE HCL 100 MG TABLET (FP) PO SCH (21:23)
[2021-01-20] MEDS: ARIPiprazole 5 MG TABLET PO SCH (09:19)
[2021-01-20] MEDS: NICOTINE 21 MG/24 HOURS TOPICAL PATCH TD SCH (09:19)
[2021-01-20] MEDS: PRENATAL VITAMINS W/ FOLIC ACID TABLET (FP) PO SCH (09:19)
[2021-01-20] MEDS: traZODone HCL 50 MG TABLET (FP) PO SCH (21:46)
[2021-01-20] MEDS: THIAMINE HCL 100 MG TABLET (FP) PO SCH (21:46)
[2021-01-21] MEDS: ARIPiprazole 5 MG TABLET PO SCH (09:44)
[2021-01-21] MEDS: PRENATAL VITAMINS W/ FOLIC ACID TABLET (FP) PO SCH (09:44)
[2021-01-21] MEDS: NICOTINE 21 MG/24 HOURS TOPICAL PATCH TD SCH (09:45)
[2021-01-21] MEDS: hydrOXYzine PAMOATE 25 MG CAPSULE (FP) PO PRN (21:23)
[2021-01-21] MEDS: traZODone HCL 50 MG TABLET (FP) PO SCH (21:23)
[2021-01-21] MEDS: THIAMINE HCL 100 MG TABLET (FP) PO SCH (21:23)
[2021-01-22] MEDS: PRENATAL VITAMINS W/ FOLIC ACID TABLET (FP) PO SCH (09:52)
[2021-01-22] MEDS: ARIPiprazole 5 MG TABLET PO SCH (09:52)
[2021-01-22] MEDS: NICOTINE 21 MG/24 HOURS TOPICAL PATCH TD SCH (09:53)
[2021-01-22] MEDS: P-EPHED 60MG/TRIPROLIDI 2.5MG TABLET PO PRN ×2 (09:54→21:31)
[2021-01-22] MEDS: THIAMINE HCL 100 MG TABLET (FP) PO SCH (21:28)
[2021-01-22] MEDS: traZODone HCL 50 MG TABLET (FP) PO SCH (21:28)
[2021-01-23] MEDS: P-EPHED 60MG/TRIPROLIDI 2.5MG TABLET PO PRN (06:30)
[2021-01-23] MEDS: PRENATAL VITAMINS W/ FOLIC ACID TABLET (FP) PO SCH (09:48)
[2021-01-23] MEDS: ARIPiprazole 5 MG TABLET PO SCH (09:48)
[2021-01-23] MEDS: NICOTINE 21 MG/24 HOURS TOPICAL PATCH TD SCH (09:49)
[2021-01-23] MEDS: THIAMINE HCL 100 MG TABLET (FP) PO SCH (21:07)
[2021-01-23] MEDS: traZODone HCL 50 MG TABLET (FP) PO SCH (21:07)
[2021-01-24] MEDS: ARIPiprazole 5 MG TABLET PO SCH (09:43)
[2021-01-24] MEDS: PRENATAL VITAMINS W/ FOLIC ACID TABLET (FP) PO SCH (09:43)
[2021-01-24] MEDS: NICOTINE 21 MG/24 HOURS TOPICAL PATCH TD SCH (09:44)
[2021-01-24] MEDS: guaiFENesin 200 MG/10 ML 10 ML UNIT-DOSE CUPS PO PRN ×2 (13:01→21:38)
[2021-01-24] MEDS: THIAMINE HCL 100 MG TABLET (FP) PO SCH (21:36)
[2021-01-24] MEDS: traZODone HCL 50 MG TABLET (FP) PO SCH (21:36)
[2021-01-25] MEDS: P-EPHED 60MG/TRIPROLIDI 2.5MG TABLET PO PRN (06:27)
[2021-01-25] MEDS: PRENATAL VITAMINS W/ FOLIC ACID TABLET (FP) PO SCH (09:38)
[2021-01-25] MEDS: ARIPiprazole 5 MG TABLET PO SCH (09:38)
[2021-01-25] MEDS: NICOTINE 21 MG/24 HOURS TOPICAL PATCH TD SCH (09:38)
[2021-01-25] MEDS: ACETAMINOPHEN 325 MG TABLET (FP) PO PRN ×2 (15:55→21:13)
[2021-01-25] MEDS: traZODone HCL 50 MG TABLET (FP) PO SCH (21:12)
[2021-01-25] MEDS: THIAMINE HCL 100 MG TABLET (FP) PO SCH (21:12)
[2021-01-25] MEDS: guaiFENesin 200 MG/10 ML 10 ML UNIT-DOSE CUPS PO PRN (21:14)
[2021-01-26] MEDS: guaiFENesin 200 MG/10 ML 10 ML UNIT-DOSE CUPS PO PRN ×2 (06:44→18:44)
[2021-01-26] MEDS: ACETAMINOPHEN 325 MG TABLET (FP) PO PRN ×2 (06:45→18:44)
[2021-01-26] MEDS: NICOTINE 21 MG/24 HOURS TOPICAL PATCH TD SCH (09:42)
[2021-01-26] MEDS: PRENATAL VITAMINS W/ FOLIC ACID TABLET (FP) PO SCH (09:42)
[2021-01-26] MEDS: ARIPiprazole 5 MG TABLET PO SCH (09:42)
[2021-01-26] MEDS: traZODone HCL 50 MG TABLET (FP) PO SCH (21:29)
[2021-01-26] MEDS: THIAMINE HCL 100 MG TABLET (FP) PO SCH (21:29)
[2021-01-27] MEDS: P-EPHED 60MG/TRIPROLIDI 2.5MG TABLET PO PRN (06:54)
[2021-01-27] MEDS: ACETAMINOPHEN 325 MG TABLET (FP) PO PRN ×2 (06:54→21:20)
[2021-01-27] MEDS: ARIPiprazole 5 MG TABLET PO SCH (09:40)
[2021-01-27] MEDS: NICOTINE 21 MG/24 HOURS TOPICAL PATCH TD SCH (09:40)
[2021-01-27] MEDS: PRENATAL VITAMINS W/ FOLIC ACID TABLET (FP) PO SCH (09:40)
[2021-01-27] MEDS: THIAMINE HCL 100 MG TABLET (FP) PO SCH (21:18)
[2021-01-27] MEDS: traZODone HCL 50 MG TABLET (FP) PO SCH (21:18)
[2021-01-27] MEDS: guaiFENesin 200 MG/10 ML 10 ML UNIT-DOSE CUPS PO PRN (21:20)
[2021-01-28] MEDS: P-EPHED 60MG/TRIPROLIDI 2.5MG TABLET PO PRN ×2 (06:40→21:10)
[2021-01-28] MEDS: ARIPiprazole 5 MG TABLET PO SCH (09:21)
[2021-01-28] MEDS: NICOTINE 21 MG/24 HOURS TOPICAL PATCH TD SCH (09:22)
[2021-01-28] MEDS: PRENATAL VITAMINS W/ FOLIC ACID TABLET (FP) PO SCH (09:22)
[2021-01-28] MEDS: THIAMINE HCL 100 MG TABLET (FP) PO SCH (21:09)
[2021-01-28] MEDS: traZODone HCL 50 MG TABLET (FP) PO SCH (21:09)
[2021-01-29] MEDS: ARIPiprazole 5 MG TABLET PO SCH (10:02)
[2021-01-29] MEDS: NICOTINE 21 MG/24 HOURS TOPICAL PATCH TD SCH (10:03)
[2021-01-29] MEDS: PRENATAL VITAMINS W/ FOLIC ACID TABLET (FP) PO SCH (10:03)
[2021-01-29] MEDS: THIAMINE HCL 100 MG TABLET (FP) PO SCH (21:14)
[2021-01-29] MEDS: guaiFENesin 200 MG/10 ML 10 ML UNIT-DOSE CUPS PO PRN (21:14)
[2021-01-29] MEDS: traZODone HCL 50 MG TABLET (FP) PO SCH (21:14)
[2021-01-30] MEDS: guaiFENesin 200 MG/10 ML 10 ML UNIT-DOSE CUPS PO PRN ×2 (06:35→21:20)
[2021-01-30] MEDS: ARIPiprazole 5 MG TABLET PO SCH (09:38)
[2021-01-30] MEDS: PRENATAL VITAMINS W/ FOLIC ACID TABLET (FP) PO SCH (09:38)
[2021-01-30] MEDS: NICOTINE 21 MG/24 HOURS TOPICAL PATCH TD SCH (09:39)
[2021-01-30] MEDS: traZODone HCL 50 MG TABLET (FP) PO SCH (21:20)
[2021-01-30] MEDS: THIAMINE HCL 100 MG TABLET (FP) PO SCH (21:20)
[2021-01-31] MEDS: ARIPiprazole 5 MG TABLET PO SCH (09:22)
[2021-01-31] MEDS: PRENATAL VITAMINS W/ FOLIC ACID TABLET (FP) PO SCH (09:23)
[2021-01-31] MEDS: NICOTINE 21 MG/24 HOURS TOPICAL PATCH TD SCH (09:32)
[2021-01-31] MEDS: ACETAMINOPHEN 325 MG TABLET (FP) PO PRN (21:12)
[2021-01-31] MEDS: guaiFENesin 200 MG/10 ML 10 ML UNIT-DOSE CUPS PO PRN (21:14)
[2021-01-31] MEDS: traZODone HCL 50 MG TABLET (FP) PO SCH (22:01)
[2021-01-31] MEDS: THIAMINE HCL 100 MG TABLET (FP) PO SCH (22:01)
[2021-01-31] MEDS ORDERED: PT OWN MED DRAWER 7, Y5N ONE (22:06)
[2021-02-01] MEDS: NICOTINE 21 MG/24 HOURS TOPICAL PATCH TD SCH (09:37)
[2021-02-01] MEDS: ARIPiprazole 5 MG TABLET PO SCH (09:37)
[2021-02-01] MEDS: PRENATAL VITAMINS W/ FOLIC ACID TABLET (FP) PO SCH (09:37)
[2021-02-01] MEDS: guaiFENesin 200 MG/10 ML 10 ML UNIT-DOSE CUPS PO PRN (16:54)
[2021-02-01] MEDS: traZODone HCL 50 MG TABLET (FP) PO SCH (21:29)
[2021-02-01] MEDS: THIAMINE HCL 100 MG TABLET (FP) PO SCH (21:29)
[2021-02-02] MEDS: ARIPiprazole 5 MG TABLET PO SCH (09:32)
[2021-02-02] MEDS: NICOTINE 21 MG/24 HOURS TOPICAL PATCH TD SCH (09:32)
[2021-02-02] MEDS: PRENATAL VITAMINS W/ FOLIC ACID TABLET (FP) PO SCH (09:32)
[2021-02-02] MEDS: THIAMINE HCL 100 MG TABLET (FP) PO SCH (21:12)
[2021-02-02] MEDS: traZODone HCL 50 MG TABLET (FP) PO SCH (21:12)
[2021-02-03] MEDS: PRENATAL VITAMINS W/ FOLIC ACID TABLET (FP) PO SCH (09:31)
[2021-02-03] MEDS: ARIPiprazole 5 MG TABLET PO SCH (09:31)
[2021-02-03] MEDS: NICOTINE 21 MG/24 HOURS TOPICAL PATCH TD SCH (09:32)
[2021-02-03] MEDS: THIAMINE HCL 100 MG TABLET (FP) PO SCH (21:14)
[2021-02-03] MEDS: traZODone HCL 50 MG TABLET (FP) PO SCH (21:14)
[2021-02-04] MEDS: ARIPiprazole 5 MG TABLET PO SCH (09:43)
[2021-02-04] MEDS: PRENATAL VITAMINS W/ FOLIC ACID TABLET (FP) PO SCH (09:43)
[2021-02-04] MEDS: P-EPHED 60MG/TRIPROLIDI 2.5MG TABLET PO PRN (09:50)
[2021-02-04] MEDS ORDERED: PT OWN MED DRAWER 7, Y5N ONE (09:50)
[2021-02-04] MEDS: NICOTINE 21 MG/24 HOURS TOPICAL PATCH TD SCH (09:50)
[2021-02-04] MEDS: traZODone HCL 50 MG TABLET (FP) PO SCH (21:13)
[2021-02-04] MEDS: THIAMINE HCL 100 MG TABLET (FP) PO SCH (21:13)
[2021-02-04] MEDS: guaiFENesin 200 MG/10 ML 10 ML UNIT-DOSE CUPS PO PRN (21:15)
[2021-02-05] MEDS: PRENATAL VITAMINS W/ FOLIC ACID TABLET (FP) PO SCH (09:59)
[2021-02-05] MEDS: ARIPiprazole 5 MG TABLET PO SCH (09:59)
[2021-02-05] MEDS: NICOTINE 21 MG/24 HOURS TOPICAL PATCH TD SCH (09:59)
[2021-02-05] MEDS: guaiFENesin 200 MG/10 ML 10 ML UNIT-DOSE CUPS PO PRN (10:00)
[2021-02-05] MEDS: THIAMINE HCL 100 MG TABLET (FP) PO SCH (21:16)
[2021-02-05] MEDS: traZODone HCL 50 MG TABLET (FP) PO SCH (21:16)
[2021-02-06] MEDS: PRENATAL VITAMINS W/ FOLIC ACID TABLET (FP) PO SCH (09:44)
[2021-02-06] MEDS: ARIPiprazole 5 MG TABLET PO SCH (09:45)
[2021-02-06] MEDS: NICOTINE 21 MG/24 HOURS TOPICAL PATCH TD SCH (09:45)
[2021-02-06] MEDS: ACETAMINOPHEN 325 MG TABLET (FP) PO PRN (14:17)
[2021-02-06] MEDS: traZODone HCL 50 MG TABLET (FP) PO SCH (21:33)
[2021-02-06] MEDS: THIAMINE HCL 100 MG TABLET (FP) PO SCH (21:33)
[2021-02-07 06:40] VITALS: BP 136/90; PULSE 87; TEMP 97.5
[2021-02-07] MEDS: ARIPiprazole 5 MG TABLET PO SCH (09:04)
[2021-02-07] MEDS: PRENATAL VITAMINS W/ FOLIC ACID TABLET (FP) PO SCH (09:04)
[2021-02-07] MEDS: NICOTINE 21 MG/24 HOURS TOPICAL PATCH TD SCH (09:05)
== END 2021-02-07 09:31 | disposition home or self-care (01) | DRG 772 ==
LOC: YASAS 19:39 → Y3E 01-16 09:24
PROVIDERS: ADMIT Allergy & Immunology; ATTEND Allergy & Immunology
PROC: HZ42ZZZ Group Counseling for Substance Abuse Treatment, Cognitive-Behavioral (ICD-10-PCS; principal; 2021-01-16)
DX: F10.20 Alcohol dependence, uncomplicated (principal); F14.20 Cocaine dependence, uncomplicated; F12.20 Cannabis dependence, uncomplicated; F17.210 Nicotine dependence, cigarettes, uncomplicated; F19.280 Other psychoactive substance dependence with psychoactive substance-induced anxiety disorder; F19.282 Other psychoactive substance dependence with psychoactive substance-induced sleep disorder; F19.24 Other psychoactive substance dependence with psychoactive substance-induced mood disorder; F31.81 Bipolar II disorder; F20.9 Schizophrenia, unspecified; K21.9 Gastro-esophageal reflux disease without esophagitis; M54.50 Low back pain, unspecified; G89.29 Other chronic pain; R05.9 Cough, unspecified; Z86.2 Personal history of diseases of the blood and blood-forming organs and certain disorders involving the immune mechanism; Z59.00 Homelessness unspecified
CPT/HCPCS: 36415; 80053; 85027; 86780; C9803; U0003; U0005

== ENCOUNTER 2021-06-20 14:19 | Inpatient (IN) | payer OTHER ==
[2021-06-20 15:53] VITALS: BMI 27.1
[2021-06-20] MEDS ORDERED: MENTHOL/PHENOL 1 EACH UD MM PRN (15:54)
[2021-06-20] MEDS ORDERED: LOPERAMIDE HCL 2 MG CAPSULE PO PRN (15:54)
[2021-06-20] MEDS ORDERED: MAGNESIUM CITRATE 300 ML BOTTLE PO PRN (15:54)
[2021-06-20] MEDS ORDERED: IBUPROFEN 400 MG TABLET (FP) PO PRN (15:54)
[2021-06-20] MEDS ORDERED: chlordiazePOXIDE HCL 25 MG CAPSULE PO PRN (15:54)
[2021-06-20] MEDS ORDERED: MAG HYDROX/AL HYDROX/SIMETH 30 ML UNIT-DOSE CUP PO PRN (15:54)
[2021-06-20] MEDS ORDERED: NICOTINE 10 MG CARTRIDGE (INHALER) IH PRN (15:54)
[2021-06-20] MEDS ORDERED: BISMUTH SUBSALICYLATE 524 MG/30 ML PO PRN (15:54)
[2021-06-20] MEDS ORDERED: ACETAMINOPHEN 325 MG TABLET (FP) PO PRN ×2 (15:54)
[2021-06-20] MEDS ORDERED: ONDANSETRON *ODT* 4 MG TABLET SL PRN (15:54)
[2021-06-20] MEDS ORDERED: MAGNESIUM HYDROX 2400MG/30ML ORAL SUSPENSION 30 ML CUP PO PRN (15:54)
[2021-06-20] MEDS ORDERED: ALBUTEROL SO4 HFA INHALER IH PRN (16:50)
[2021-06-20] MEDS: chlordiazePOXIDE HCL 25 MG CAPSULE PO SCH ×2 (18:30→23:51)
[2021-06-20] MEDS: NICOTINE 7 MG/24 HOURS TOPICAL PATCH TD SCH (19:08)
[2021-06-20] MEDS: PRENATAL VITAMINS W/ FOLIC ACID TABLET (FP) PO SCH (19:15)
[2021-06-20] MEDS: hydrOXYzine PAMOATE 25 MG CAPSULE (FP) PO SCH ×2 (19:15→23:51)
[2021-06-20] MEDS ORDERED: MELATONIN 5 MG TABLETS PO SCH (22:00)
[2021-06-20] MEDS: THIAMINE HCL 100 MG TABLET (FP) PO SCH (23:51)
[2021-06-21] MEDS: hydrOXYzine PAMOATE 25 MG CAPSULE (FP) PO SCH ×5 (05:52→22:13)
[2021-06-21] MEDS: chlordiazePOXIDE HCL 25 MG CAPSULE PO SCH ×4 (05:52→22:12)
[2021-06-21] MEDS: PRENATAL VITAMINS W/ FOLIC ACID TABLET (FP) PO SCH (10:27)
[2021-06-21] MEDS: NICOTINE 7 MG/24 HOURS TOPICAL PATCH TD SCH (10:29)
[2021-06-21 14:39] LABS: HEMOGLOBIN 14.1 GM/dL (11.7-16.9); MCH 32.5 pg (25.7-33.7); MCHC 34.5 g/dl (32.0-35.9); MEAN CELL VOLUME 94.2 fl (80-96); MEAN PLT VOLUME 8.6 fl (7.5-11.1); PLATELET COUNT 174 10^3/uL (134-434); RBC 4.35 M/mm3 (4.00-5.60); RDW 15.1 % (11.9-15.9); WHITE BLOOD COUNT 4.3 K/mm3 (4.0-10.0)
[2021-06-21 14:53] LABS: CALCIUM 8.6 mg/dL (8.5-10.1)
[2021-06-21 14:54] LABS: ALBUMIN 3.4 g/dl (3.4-5.0); BLOOD UREA NITROGEN 19.6 mg/dL (7-18)
[2021-06-21 14:57] LABS: CREATININE 0.9 mg/dL (0.55-1.3)
[2021-06-21 14:58] LABS: TOT PROT 6.2 g/dl (6.4-8.2)
[2021-06-21 14:59] LABS: BILIRUBIN,TOTAL 0.6 mg/dL (0.2-1)
[2021-06-21] MEDS: MELATONIN 5 MG TABLETS PO SCH (22:12)
[2021-06-21] MEDS: THIAMINE HCL 100 MG TABLET (FP) PO SCH (22:13)
[2021-06-22] MEDS: hydrOXYzine PAMOATE 25 MG CAPSULE (FP) PO SCH ×5 (05:43→22:51)
[2021-06-22] MEDS: chlordiazePOXIDE HCL 25 MG CAPSULE PO SCH ×4 (05:44→22:49)
[2021-06-22 08:07] LABS: SARS-CoV-2 NAA Not Detected (Not Detected)
[2021-06-22] MEDS: NICOTINE 7 MG/24 HOURS TOPICAL PATCH TD SCH (10:27)
[2021-06-22] MEDS: PRENATAL VITAMINS W/ FOLIC ACID TABLET (FP) PO SCH (10:27)
[2021-06-22] MEDS: METHOCARBAMOL 500 MG TABLET PO PRN (10:27)
[2021-06-22] MEDS: MELATONIN 5 MG TABLETS PO SCH (22:50)
[2021-06-22] MEDS: THIAMINE HCL 100 MG TABLET (FP) PO SCH (22:50)
[2021-06-23] MEDS ORDERED: chlordiazePOXIDE HCL 10 MG CAPSULE PO PRN
[2021-06-23] MEDS: chlordiazePOXIDE HCL 10 MG CAPSULE PO SCH ×3 (05:35→17:43)
[2021-06-23] MEDS: hydrOXYzine PAMOATE 25 MG CAPSULE (FP) PO SCH ×4 (05:35→17:42)
[2021-06-23] MEDS: PRENATAL VITAMINS W/ FOLIC ACID TABLET (FP) PO SCH (10:35)
[2021-06-23] MEDS: NICOTINE 7 MG/24 HOURS TOPICAL PATCH TD SCH (10:36)
[2021-06-23] MEDS: METHOCARBAMOL 500 MG TABLET PO PRN (10:36)
[2021-06-24] MEDS: chlordiazePOXIDE HCL 10 MG CAPSULE PO SCH ×3 (00:12→17:52)
[2021-06-24] MEDS: THIAMINE HCL 100 MG TABLET (FP) PO SCH ×2 (00:12→22:21)
[2021-06-24] MEDS: MELATONIN 5 MG TABLETS PO SCH ×2 (00:12→22:21)
[2021-06-24] MEDS: hydrOXYzine PAMOATE 25 MG CAPSULE (FP) PO SCH ×6 (00:12→22:22)
[2021-06-24] MEDS: METHOCARBAMOL 500 MG TABLET PO PRN (10:19)
[2021-06-24] MEDS: NICOTINE 7 MG/24 HOURS TOPICAL PATCH TD SCH (10:19)
[2021-06-24] MEDS: PRENATAL VITAMINS W/ FOLIC ACID TABLET (FP) PO SCH (10:19)
[2021-06-25] MEDS ORDERED: chlordiazePOXIDE HCL 10 MG CAPSULE PO ONE (05:00)
[2021-06-25] MEDS: hydrOXYzine PAMOATE 25 MG CAPSULE (FP) PO SCH ×2 (05:44→10:32)
[2021-06-25 09:21] VITALS: BP 132/72; PULSE 88; TEMP 97.4
[2021-06-25] MEDS: PRENATAL VITAMINS W/ FOLIC ACID TABLET (FP) PO SCH (10:32)
[2021-06-25] MEDS: NICOTINE 7 MG/24 HOURS TOPICAL PATCH TD SCH (10:32)
[2021-06-26 08:08] LABS: SARS-CoV-2 NAA Not Detected (Not Detected)
== END 2021-06-25 12:49 | disposition other institution (70) | DRG 774 ==
LOC: YASAS 14:19 → Y6N 17:54
PROVIDERS: ADMIT Allergy & Immunology; ATTEND Allergy & Immunology
PROC: HZ2ZZZZ Detoxification Services for Substance Abuse Treatment (ICD-10-PCS; principal; 2021-06-20)
DX: F10.230 Alcohol dependence with withdrawal, uncomplicated (principal); F14.20 Cocaine dependence, uncomplicated; F12.20 Cannabis dependence, uncomplicated; F17.213 Nicotine dependence, cigarettes, with withdrawal; F19.282 Other psychoactive substance dependence with psychoactive substance-induced sleep disorder; F19.24 Other psychoactive substance dependence with psychoactive substance-induced mood disorder; F31.9 Bipolar disorder, unspecified; F39 Unspecified mood [affective] disorder; J44.9 Chronic obstructive pulmonary disease, unspecified; K21.9 Gastro-esophageal reflux disease without esophagitis; M54.50 Low back pain, unspecified; G89.29 Other chronic pain; Z86.79 Personal history of other diseases of the circulatory system; Z86.2 Personal history of diseases of the blood and blood-forming organs and certain disorders involving the immune mechanism; Z56.0 Unemployment, unspecified; Z59.01 Sheltered homelessness
CPT/HCPCS: 36415; 80053; 85027; 86780; C9803-CS; U0003; U0005

== ENCOUNTER 2021-06-25 13:22 | Inpatient (IN) | payer OTHER ==
[~2021-06-25 13:22] MED LIST: ACETAMINOPHEN 325 MG TABLET (FP) PO PRN; IBUPROFEN 400 MG TABLET (FP) PO PRN; LOPERAMIDE HCL 2 MG CAPSULE PO PRN; MAG HYDROX/AL HYDROX/SIMETH 30 ML UNIT-DOSE CUP PO PRN; MAGNESIUM CITRATE 300 ML BOTTLE PO PRN; MAGNESIUM HYDROX 2400MG/30ML ORAL SUSPENSION 30 ML CUP PO PRN; NICOTINE 10 MG CARTRIDGE (INHALER) IH PRN; P-EPHED 60MG/TRIPROLIDI 2.5MG TABLET PO PRN; guaiFENesin 200 MG/10 ML 10 ML UNIT-DOSE CUPS PO PRN
[2021-06-25] MEDS: hydrOXYzine PAMOATE 25 MG CAPSULE (FP) PO SCH ×3 (13:58→21:17)
[2021-06-25] MEDS: THIAMINE HCL 100 MG TABLET (FP) PO SCH (21:17)
[2021-06-25] MEDS: MELATONIN 5 MG TABLETS PO SCH (21:17)
[2021-06-26] MEDS: hydrOXYzine PAMOATE 25 MG CAPSULE (FP) PO SCH ×5 (06:37→21:25)
[2021-06-26] MEDS: PRENATAL VITAMINS W/ FOLIC ACID TABLET (FP) PO SCH (09:40)
[2021-06-26] MEDS ORDERED: NICOTINE 7 MG/24 HOURS TOPICAL PATCH TD SCH (10:00)
[2021-06-26] MEDS: METHOCARBAMOL 500 MG TABLET PO PRN (21:24)
[2021-06-26] MEDS: MELATONIN 5 MG TABLETS PO SCH (21:25)
[2021-06-26] MEDS: THIAMINE HCL 100 MG TABLET (FP) PO SCH (21:25)
[2021-06-27] MEDS: hydrOXYzine PAMOATE 25 MG CAPSULE (FP) PO SCH ×5 (06:15→21:15)
[2021-06-27] MEDS: PRENATAL VITAMINS W/ FOLIC ACID TABLET (FP) PO SCH (09:56)
[2021-06-27] MEDS: MELATONIN 5 MG TABLETS PO SCH (21:14)
[2021-06-27] MEDS: THIAMINE HCL 100 MG TABLET (FP) PO SCH (21:15)
[2021-06-27] MEDS: METHOCARBAMOL 500 MG TABLET PO PRN (21:15)
[2021-06-27] MEDS: traZODone HCL 50 MG TABLET (FP) PO SCH (21:16)
[2021-06-28] MEDS: hydrOXYzine PAMOATE 25 MG CAPSULE (FP) PO SCH ×5 (06:11→21:51)
[2021-06-28] MEDS: PRENATAL VITAMINS W/ FOLIC ACID TABLET (FP) PO SCH (10:09)
[2021-06-28] MEDS: MELATONIN 5 MG TABLETS PO SCH (21:16)
[2021-06-28] MEDS: traZODone HCL 50 MG TABLET (FP) PO SCH (21:17)
[2021-06-28] MEDS: THIAMINE HCL 100 MG TABLET (FP) PO SCH (21:17)
[2021-06-29 06:10] LABS: SARS-CoV-2 NAA Not Detected (Not Detected)
[2021-06-29] MEDS: hydrOXYzine PAMOATE 25 MG CAPSULE (FP) PO SCH ×3 (06:46→13:54)
[2021-06-29] MEDS: PRENATAL VITAMINS W/ FOLIC ACID TABLET (FP) PO SCH (09:46)
[2021-06-29] MEDS: THIAMINE HCL 100 MG TABLET (FP) PO SCH (21:09)
[2021-06-29] MEDS: traZODone HCL 50 MG TABLET (FP) PO SCH (21:09)
[2021-06-29] MEDS: hydrOXYzine PAMOATE 25 MG CAPSULE (FP) PO PRN (21:09)
[2021-06-29] MEDS: MELATONIN 5 MG TABLETS PO SCH (21:09)
[2021-06-30] MEDS: PRENATAL VITAMINS W/ FOLIC ACID TABLET (FP) PO SCH (09:58)
[2021-06-30] MEDS: traZODone HCL 50 MG TABLET (FP) PO SCH (22:01)
[2021-06-30] MEDS: THIAMINE HCL 100 MG TABLET (FP) PO SCH (22:01)
[2021-06-30] MEDS: MELATONIN 5 MG TABLETS PO SCH (22:01)
[2021-07-01] MEDS: PRENATAL VITAMINS W/ FOLIC ACID TABLET (FP) PO SCH (09:58)
[2021-07-01] MEDS: hydrOXYzine PAMOATE 25 MG CAPSULE (FP) PO PRN ×2 (09:59→21:26)
[2021-07-01] MEDS: traZODone HCL 50 MG TABLET (FP) PO SCH (21:25)
[2021-07-01] MEDS: THIAMINE HCL 100 MG TABLET (FP) PO SCH (21:25)
[2021-07-01] MEDS: MELATONIN 5 MG TABLETS PO SCH (21:25)
[2021-07-02 07:11] VITALS: BP 112/78; PULSE 80; TEMP 97.8
[2021-07-02] MEDS: PRENATAL VITAMINS W/ FOLIC ACID TABLET (FP) PO SCH (09:55)
[2021-07-02] MEDS: hydrOXYzine PAMOATE 25 MG CAPSULE (FP) PO PRN (09:56)
== END 2021-07-02 13:40 | disposition home or self-care (01) | DRG 772 ==
LOC: YASAS 13:22 → Y5N 13:25
PROVIDERS: ADMIT Allergy & Immunology; ATTEND Allergy & Immunology
PROC: HZ42ZZZ Group Counseling for Substance Abuse Treatment, Cognitive-Behavioral (ICD-10-PCS; principal; 2021-06-25)
DX: F10.20 Alcohol dependence, uncomplicated (principal); F14.20 Cocaine dependence, uncomplicated; F12.20 Cannabis dependence, uncomplicated; F17.210 Nicotine dependence, cigarettes, uncomplicated; F19.282 Other psychoactive substance dependence with psychoactive substance-induced sleep disorder; F39 Unspecified mood [affective] disorder; J44.9 Chronic obstructive pulmonary disease, unspecified; K21.9 Gastro-esophageal reflux disease without esophagitis; M54.50 Low back pain, unspecified; G89.29 Other chronic pain; Z56.0 Unemployment, unspecified; Z59.00 Homelessness unspecified
CPT/HCPCS: C9803-CS; U0003; U0005

== ENCOUNTER 2023-01-26 13:53 | Inpatient (IN) | payer OTHER ==
[2023-01-26] MEDS ORDERED: IBUPROFEN 600 MG TABLET (FP) PO PRN (18:53)
[2023-01-26] MEDS ORDERED: guaiFENesin 600 MG TABLET.ER (FP) PO PRN (18:53)
[2023-01-26] MEDS ORDERED: BENZOCAINE/MENTHOL (CHLORASEPTIC ) LOZENGE MM PRN (18:53)
[2023-01-26] MEDS ORDERED: COLLOIDAL OATMEAL 1 BAR EACH TP PRN (18:53)
[2023-01-26] MEDS ORDERED: NALOXONE HCL 0.4 MG/ML VIAL IM PRN (18:53)
[2023-01-26] MEDS ORDERED: NALOXONE HCL (KLOXXADO) 8 MG SPRAY NS PRN (18:53)
[2023-01-26] MEDS ORDERED: IBUPROFEN 400 MG TABLET (FP) PO PRN (18:53)
[2023-01-26] MEDS ORDERED: BENZONATATE 200 MG CAPSULE PO PRN (18:53)
[2023-01-26] MEDS ORDERED: P-EPHED 60MG/TRIPROLIDI 2.5MG TABLET PO PRN (18:53)
[2023-01-26] MEDS ORDERED: MAGNESIUM HYDROX 2400MG/30ML ORAL SUSPENSION 30 ML CUP PO PRN (18:53)
[2023-01-26] MEDS ORDERED: LOPERAMIDE HCL 2 MG CAPSULE PO PRN (18:53)
[2023-01-26] MEDS ORDERED: NICOTINE POLACRILEX 2 MG GUM BUC PRN (18:53)
[2023-01-26] MEDS ORDERED: MAG HYDROX/AL HYDROX/SIMETH 30 ML UNIT-DOSE CUP PO PRN (18:53)
[2023-01-26] MEDS ORDERED: POLYETHYLENE GLYCOL (HEALTHYLAX) 3350 17 GM PACKET PO PRN (18:53)
[2023-01-26] MEDS ORDERED: hydrOXYzine PAMOATE 25 MG CAPSULE (FP) PO PRN (18:53)
[2023-01-26] MEDS ORDERED: ACETAMINOPHEN 325 MG TABLET (FP) PO PRN (18:53)
[2023-01-26] MEDS: THIAMINE HCL 100 MG TABLET (FP) PO SCH (21:55)
[2023-01-26] MEDS: MELATONIN 5 MG TABLETS PO SCH (21:55)
[2023-01-27] MEDS: PRENATAL VITAMINS W/ FOLIC ACID TABLET (FP) PO SCH (10:00)
[2023-01-27 11:46] LABS: CHLORIDE 110 mmol/L (98-107); POTASSIUM 4.1 mmol/L (3.5-5.1); SODIUM 145 mmol/L (136-145)
[2023-01-27 11:48] LABS: CALCIUM 9.1 mg/dL (8.5-10.1)
[2023-01-27 11:49] LABS: ALBUMIN 3.1 g/dl (3.4-5.0); ANION GAP 7 mmol/L (4-13); BLOOD UREA NITROGEN 22.8 mg/dL (7-18); CO2 28 mmol/L (21-32); GLUCOSE,RANDOM 96 mg/dL (74-106)
[2023-01-27 11:52] LABS: SGOT/AST 25 U/L (15-37); SGPT/ALT 38 U/L (13-61)
[2023-01-27 11:53] LABS: BILIRUBIN,TOTAL 0.5 mg/dL (0.2-1); TOT PROT 6.5 g/dl (6.4-8.2)
[2023-01-27 11:55] LABS: ALK PHOS 86 U/L (45-117)
[2023-01-27 11:58] LABS: HEMATOCRIT 43.3 % (35.4-49); HEMOGLOBIN 14.9 GM/dL (11.7-16.9); MCH 32.2 pg (25.7-33.7); MCHC 34.4 g/dl (32.0-35.9); MEAN CELL VOLUME 93.7 fl (80-96); MEAN PLT VOLUME 8.3 fl (7.5-11.1); PLATELET COUNT 241 10^3/uL (134-434); RBC 4.62 M/mm3 (4.00-5.60); RDW 14.7 % (11.9-15.9); WHITE BLOOD COUNT 3.7 K/mm3 (4.0-10.0)
[2023-01-27 11:59] LABS: URINE APPEARANCE CLEAR; URINE BILIRUBIN NEGATIVE (NEGATIVE); URINE COLOR YELLOW; URINE GLUCOSE (UA) NEGATIVE (NEGATIVE); URINE KETONE NEGATIVE (NEGATIVE); URINE LEUK ESTERASE NEGATIVE (NEGATIVE); URINE NITRITE NEGATIVE (NEGATIVE); URINE PROTEIN NEGATIVE (NEGATIVE)
[2023-01-27] MEDS ORDERED: TUBERCULIN PPD 5 TU/0.1ML SYRINGE (IN PATIENT USE ONLY) ID ONE (12:00)
[2023-01-27 12:14] LABS: SYPHILIS W/ RPR CONF NON-REACTIVE (NONREACTIVE)
[2023-01-27] MEDS: MELATONIN 5 MG TABLETS PO SCH (22:52)
[2023-01-27] MEDS: THIAMINE HCL 100 MG TABLET (FP) PO SCH (22:52)
[2023-01-28] MEDS: PRENATAL VITAMINS W/ FOLIC ACID TABLET (FP) PO SCH (10:20)
[2023-01-28] MEDS: THIAMINE HCL 100 MG TABLET (FP) PO SCH (22:18)
[2023-01-28] MEDS: MELATONIN 5 MG TABLETS PO SCH (22:18)
[2023-01-29] MEDS: PRENATAL VITAMINS W/ FOLIC ACID TABLET (FP) PO SCH (10:17)
[2023-01-29] MEDS ORDERED: ALBUTEROL SO4 HFA INHALER IH SCH (14:15)
[2023-01-29] MEDS ORDERED: ALBUTEROL SO4 HFA INHALER IH PRN (15:12)
[2023-01-29] MEDS: THIAMINE HCL 100 MG TABLET (FP) PO SCH (21:56)
[2023-01-29] MEDS: MELATONIN 5 MG TABLETS PO SCH (21:56)
[2023-01-30] MEDS: PRENATAL VITAMINS W/ FOLIC ACID TABLET (FP) PO SCH (09:13)
[2023-01-30] MEDS: THIAMINE HCL 100 MG TABLET (FP) PO SCH (22:06)
[2023-01-30] MEDS: MELATONIN 5 MG TABLETS PO SCH (22:06)
[2023-01-31] MEDS: PRENATAL VITAMINS W/ FOLIC ACID TABLET (FP) PO SCH (10:03)
[2023-01-31] MEDS: THIAMINE HCL 100 MG TABLET (FP) PO SCH (21:45)
[2023-01-31] MEDS: MELATONIN 5 MG TABLETS PO SCH (21:45)
[2023-02-01] MEDS: PRENATAL VITAMINS W/ FOLIC ACID TABLET (FP) PO SCH (10:17)
[2023-02-01] MEDS: MELATONIN 5 MG TABLETS PO SCH (22:20)
[2023-02-01] MEDS: THIAMINE HCL 100 MG TABLET (FP) PO SCH (22:21)
[2023-02-02 07:19] VITALS: BP 98/76; PULSE 78; RESP 18; TEMP 97.6
[2023-02-02] MEDS: PRENATAL VITAMINS W/ FOLIC ACID TABLET (FP) PO SCH (10:21)
== END 2023-02-02 13:00 | disposition other institution (70) | DRG 772 ==
LOC: YASAS 13:53 → Y5N 19:02
PROVIDERS: ADMIT Allergy & Immunology; ATTEND Psychiatry & Neurology Pain Medicine
PROC: HZ42ZZZ Group Counseling for Substance Abuse Treatment, Cognitive-Behavioral (ICD-10-PCS; principal; 2023-01-26)
DX: F14.20 Cocaine dependence, uncomplicated (principal); F10.20 Alcohol dependence, uncomplicated; F12.20 Cannabis dependence, uncomplicated; F17.210 Nicotine dependence, cigarettes, uncomplicated; F19.282 Other psychoactive substance dependence with psychoactive substance-induced sleep disorder; F39 Unspecified mood [affective] disorder; F32.A Depression, unspecified; K21.9 Gastro-esophageal reflux disease without esophagitis; M54.50 Low back pain, unspecified; G89.29 Other chronic pain; Z86.79 Personal history of other diseases of the circulatory system; Z86.73 Personal history of transient ischemic attack (TIA), and cerebral infarction without residual deficits
CPT/HCPCS: 36415; 80053; 80307; 81003; 85027; 86780; 86803; 87635; 87811

== ENCOUNTER 2023-06-30 14:00 | Inpatient (IN) | payer OTHER ==
[2023-06-30 15:29] VITALS: BMI 20.9
[2023-06-30] MEDS ORDERED: IBUPROFEN 600 MG TABLET (FP) PO PRN (16:19)
[2023-06-30] MEDS ORDERED: BENZONATATE 200 MG CAPSULE PO PRN (16:19)
[2023-06-30] MEDS ORDERED: ACETAMINOPHEN 325 MG TABLET (FP) PO PRN (16:19)
[2023-06-30] MEDS ORDERED: LOPERAMIDE HCL 2 MG CAPSULE PO PRN (16:19)
[2023-06-30] MEDS ORDERED: NALOXONE HCL (KLOXXADO) 8 MG SPRAY NS PRN (16:19)
[2023-06-30] MEDS ORDERED: MAGNESIUM HYDROX 2400MG/30ML ORAL SUSPENSION 30 ML CUP PO PRN (16:19)
[2023-06-30] MEDS ORDERED: POLYETHYLENE GLYCOL (HEALTHYLAX) 3350 17 GM PACKET PO PRN (16:19)
[2023-06-30] MEDS ORDERED: NALOXONE HCL 0.4 MG/ML VIAL IM PRN (16:19)
[2023-06-30] MEDS ORDERED: IBUPROFEN 400 MG TABLET (FP) PO PRN (16:19)
[2023-06-30] MEDS ORDERED: ALBUTEROL SO4 HFA INHALER IH PRN (16:22)
[2023-06-30] MEDS ORDERED: ASPIRIN 81 MG CHEWABLE TABLETS ONE (22:49)
[2023-06-30] MEDS ORDERED: MELATONIN 5 MG TABLETS ONE (22:49)
[2023-06-30] MEDS ORDERED: PRENATAL VITAMINS W/ FOLIC ACID TABLET (FP) PO ONE (22:49)
[2023-06-30] MEDS: PANTOPRAZOLE 40 MG TABLET PO SCH (22:52)
[2023-06-30] MEDS: THIAMINE HCL 100 MG TABLET (FP) PO SCH (22:53)
[2023-06-30] MEDS: MELATONIN 5 MG TABLETS PO SCH (22:53)
[2023-06-30] MEDS: ASPIRIN COATED 81 MG TABLET.EC PO SCH (22:54)
[2023-06-30] MEDS: PRENATAL VITAMINS W/ FOLIC ACID TABLET (FP) PO SCH (22:54)
[2023-06-30] MEDS: BUDESONIDE/FORMETEROL FUMARATE 160/4.5 mcg INHALER IH SCH (22:59)
[2023-07-01 09:02] LABS: HEMATOCRIT 41.7 % (35.4-49); MCH 32.6 pg (25.7-33.7); MCHC 33.6 g/dl (32.0-35.9); MEAN CELL VOLUME 97.1 fl (80-96); MEAN PLT VOLUME 7.9 fl (7.5-11.1); PLATELET COUNT 255 10^3/uL (134-434); RDW 14.7 % (11.9-15.9); WHITE BLOOD COUNT 3.4 K/mm3 (4.0-10.0)
[2023-07-01 09:02] LABS: PH,URINE 5.5 (5.0-8.0); URINE APPEARANCE CLEAR; URINE BILIRUBIN NEGATIVE (NEGATIVE); URINE COLOR YELLOW; URINE GLUCOSE (UA) NEGATIVE (NEGATIVE); URINE KETONE TRACE (NEGATIVE); URINE LEUK ESTERASE NEGATIVE (NEGATIVE); URINE NITRITE NEGATIVE (NEGATIVE); URINE PROTEIN NEGATIVE (NEGATIVE)
[2023-07-01 09:28] LABS: POTASSIUM 4.2 mmol/L (3.5-5.1)
[2023-07-01 09:36] LABS: CALCIUM 8.9 mg/dL (8.5-10.1)
[2023-07-01 09:37] LABS: BLOOD UREA NITROGEN 26.8 mg/dL (7-18)
[2023-07-01 09:41] LABS: BILIRUBIN,TOTAL 0.3 mg/dL (0.2-1)
[2023-07-01 09:42] LABS: TOT PROT 6.7 g/dl (6.4-8.2)
[2023-07-01] MEDS: guaiFENesin 600 MG TABLET.ER (FP) PO PRN (10:20)
[2023-07-01] MEDS: BENZOCAINE/MENTHOL (CHLORASEPTIC ) LOZENGE MM PRN (10:20)
[2023-07-01 11:45] LABS: SYPHILIS W/ RPR CONF NON-REACTIVE (NONREACTIVE)
[2023-07-01] MEDS: traZODone HCL 50 MG TABLET (FP) PO SCH (21:28)
[2023-07-04] MEDS: hydrOXYzine PAMOATE 25 MG CAPSULE (FP) PO PRN (21:33)
[2023-07-04] MEDS: MAG HYDROX/AL HYDROX/SIMETH 30 ML UNIT-DOSE CUP PO PRN (21:35)
[2023-07-15 07:50] VITALS: TEMP 97.5
[2023-07-16 06:43] VITALS: BP 113/68; PULSE 72; RESP 17
== END 2023-07-16 13:07 | disposition home or self-care (01) | DRG 772 ==
LOC: YASAS 14:00 → Y3W 22:42
PROVIDERS: ADMIT Allergy & Immunology; ATTEND Psychiatry & Neurology Pain Medicine
PROC: HZ42ZZZ Group Counseling for Substance Abuse Treatment, Cognitive-Behavioral (ICD-10-PCS; principal; 2023-06-30)
DX: F10.20 Alcohol dependence, uncomplicated (principal); F14.20 Cocaine dependence, uncomplicated; F12.20 Cannabis dependence, uncomplicated; F17.210 Nicotine dependence, cigarettes, uncomplicated; F31.9 Bipolar disorder, unspecified; F41.9 Anxiety disorder, unspecified; J44.9 Chronic obstructive pulmonary disease, unspecified; K21.9 Gastro-esophageal reflux disease without esophagitis; M54.50 Low back pain, unspecified; G89.29 Other chronic pain; Z86.73 Personal history of transient ischemic attack (TIA), and cerebral infarction without residual deficits; Z86.59 Personal history of other mental and behavioral disorders; Z59.02 Unsheltered homelessness; Z91.199 Patient's noncompliance with other medical treatment and regimen due to unspecified reason
CPT/HCPCS: 0241U-QW; 36415; 80053; 81003; 85027; 86780; 86803; 93005; 93010

== ENCOUNTER 2024-01-21 14:01 | Inpatient (IN) | payer OTHER ==
[2024-01-21 14:58] VITALS: BMI 22.2
[2024-01-21] MEDS ORDERED: ACETAMINOPHEN 325 MG TABLET (FP) PO PRN (17:11)
[2024-01-21] MEDS ORDERED: IBUPROFEN 600 MG TABLET (FP) PO PRN (17:11)
[2024-01-21] MEDS ORDERED: NICOTINE POLACRILEX 2 MG GUM BUC PRN (17:11)
[2024-01-21] MEDS ORDERED: MAGNESIUM HYDROX 2400MG/30ML ORAL SUSPENSION 30 ML CUP PO PRN (17:11)
[2024-01-21] MEDS ORDERED: BENZOCAINE/MENTHOL (CHLORASEPTIC ) LOZENGE MM PRN (17:11)
[2024-01-21] MEDS ORDERED: DICYCLOMINE HCL 10 MG CAPSULE PO PRN (17:11)
[2024-01-21] MEDS ORDERED: ONDANSETRON *ODT* 4 MG TABLET SL PRN (17:11)
[2024-01-21] MEDS ORDERED: guaiFENesin 600 MG TABLET.ER (FP) PO PRN (17:11)
[2024-01-21] MEDS ORDERED: BENZONATATE 200 MG CAPSULE PO PRN (17:11)
[2024-01-21] MEDS ORDERED: MAG HYDROX/AL HYDROX/SIMETH 30 ML UNIT-DOSE CUP PO PRN (17:11)
[2024-01-21] MEDS ORDERED: NICOTINE POLACRILEX 2 MG LOZENGE BC PRN (17:11)
[2024-01-21] MEDS ORDERED: IBUPROFEN 400 MG TABLET (FP) PO PRN (17:11)
[2024-01-21] MEDS ORDERED: BISMUTH SUBSALICYLATE 524 MG/30 ML PO PRN (17:11)
[2024-01-21] MEDS ORDERED: POLYETHYLENE GLYCOL (HEALTHYLAX) 3350 17 GM PACKET PO PRN (17:11)
[2024-01-21] MEDS: hydrOXYzine PAMOATE 25 MG CAPSULE (FP) PO PRN (22:01)
[2024-01-21] MEDS: MELATONIN 5 MG TABLETS PO SCH (22:01)
[2024-01-21] MEDS: THIAMINE 100 MG TABLET PO SCH (22:01)
[2024-01-21] MEDS: METHOCARBAMOL 500 MG TABLET PO PRN (22:01)
[2024-01-22] MEDS: PRENATAL VITAMINS W/ FOLIC ACID TABLET (FP) PO SCH (10:07)
[2024-01-22] MEDS: chlordiazePOXIDE HCL 25 MG CAPSULE PO SCH (10:09)
[2024-01-22] MEDS: ASPIRIN COATED 81 MG TABLET.EC PO SCH (10:09)
[2024-01-22] MEDS: PANTOPRAZOLE 40 MG TABLET PO SCH (10:09)
[2024-01-22] MEDS: ACAMPROSATE CALCIUM 333 MG TABLET.DR PO SCH (13:07)
[2024-01-22 17:35] LABS: HEMATOCRIT 44.4 % (35.4-49); HEMOGLOBIN 14.9 GM/dL (11.7-16.9); MCH 32.1 pg (25.7-33.7); MCHC 33.6 g/dl (32.0-35.9); MEAN CELL VOLUME 95.7 fl (80-96); MEAN PLT VOLUME 8.4 fl (7.5-11.1); PLATELET COUNT 208 10^3/uL (134-434); RBC 4.65 M/mm3 (4.00-5.60); RDW 14.6 % (11.9-15.9); WHITE BLOOD COUNT 3.5 K/mm3 (4.0-10.0)
[2024-01-22 17:56] LABS: POTASSIUM 3.9 mmol/L (3.5-5.1)
[2024-01-22 18:05] LABS: ALBUMIN 3.2 g/dl (3.4-5.0); BILIRUBIN,TOTAL 0.4 mg/dL (0.2-1); BLOOD UREA NITROGEN 16.6 mg/dL (7-18); CALCIUM 8.9 mg/dL (8.5-10.1)
[2024-01-22 18:06] LABS: TOT PROT 6.5 g/dl (6.4-8.2)
[2024-01-22 18:08] LABS: CREATININE 0.9 mg/dL (0.55-1.3)
[2024-01-24] MEDS: chlordiazePOXIDE HCL 25 MG CAPSULE PO SCH (06:12)
[2024-01-24] MEDS: chlordiazePOXIDE HCL 25 MG CAPSULE PO PRN (06:13)
[2024-01-25] MEDS ORDERED: chlordiazePOXIDE HCL 10 MG CAPSULE PO PRN
[2024-01-25] MEDS: chlordiazePOXIDE HCL 10 MG CAPSULE PO SCH (06:03)
[2024-01-26] MEDS: chlordiazePOXIDE HCL 10 MG CAPSULE PO SCH (04:50)
[2024-01-27] MEDS: ALBUTEROL SO4 HFA INHALER IH PRN (02:41)
[2024-01-27] MEDS: chlordiazePOXIDE HCL 10 MG CAPSULE PO ONE (05:56)
[2024-01-27] MEDS: LOPERAMIDE HCL 2 MG CAPSULE PO PRN (06:36)
[2024-01-27 09:27] VITALS: RESP 16
[2024-01-27 13:52] VITALS: BP 95/63; PULSE 87; TEMP 98.6
== END 2024-01-27 13:58 | disposition home or self-care (01) | DRG 774 ==
LOC: YASAS 14:01 → Y6N 17:45
PROVIDERS: ADMIT Allergy & Immunology; ATTEND Surgery
PROC: HZ2ZZZZ Detoxification Services for Substance Abuse Treatment (ICD-10-PCS; principal; 2024-01-21)
DX: F10.230 Alcohol dependence with withdrawal, uncomplicated (principal); F14.20 Cocaine dependence, uncomplicated; F12.20 Cannabis dependence, uncomplicated; F17.210 Nicotine dependence, cigarettes, uncomplicated; F31.9 Bipolar disorder, unspecified; F41.9 Anxiety disorder, unspecified; J43.0 Unilateral pulmonary emphysema [MacLeod's syndrome]; K21.9 Gastro-esophageal reflux disease without esophagitis; Z86.73 Personal history of transient ischemic attack (TIA), and cerebral infarction without residual deficits
CPT/HCPCS: 36415; 80053; 80305; 80307; 85027